=== PATIENT | female | born 1975 | race Caucasian/White ===

== ENCOUNTER 2019-08-03 11:00 | Outpatient (RCR) | payer OTHER, SELFPAY ==
--- NOTE | 2019-08-03 11:38 | PTOPEVAL ---
Thank you for referring Sharda Nicholson to [facility]. Please review, sign, date and return this plan of care SONYA. I agree with and certify that the following plan of care is medically necessary. Referring Physician Date Admitting Provider: Attending Provider: PHYSICIAN NOT ON STAFF Referring Provider: *PT Outpatient Evaluation Start: 08/03/19 10:59 Freq: Status: Active Protocol: Document 08/03/19 10:59 LUIGI (Rec: 08/03/19 11:31 LUIGI [email or web address]) Therapy Assessment Status Assessment Status Assessment Status Evaluation Evaluation Information Problem Diagnosis left knee pain Onset 07/06/19 Subjective Information Pt. reports that she stepped Query Text:As Reported By Patient/ out of her truck on 07/06/19 and Family felt pain in the left knee. She describes pain on the inside of the left knee. Pt. reports that her pain is currently increased with squatting or attempting to straighten the leg after being bent. She notes mild pain with stair navigation. Prior Level of Function Activity Level (Last 3 Months) Occupation hazardous materials tanker driver Hand Dominance Right Activity of Daily Living Ability Independent Indoor/Home Mobility Independent Community Mobility Independent Stairs Ability Independent Functional Cognition (Planning, Shopping Independent , Taking Medications) Cooking Yes Cleaning Yes Laundry Yes Shopping Yes Driving Yes Pain Assessment Pain Scale Pain Scale Used Numeric (1 - 10) Self Report Pain Assessment Left Knee(s) Reported Pain Level 2 Pain Score Pain Score 2: Self Report Lower Extremity Range of Motion General Lower Extremity Range of Motion Gross Lower Extremity Range of Motion bilateral knee AROM 0-125 Comments degrees Lower Extremity Muscle Strength Testing General Lower Extremity Strength Gross Lower Extremity Strength bilateral hip flexion 5/5, right hip abduction 4/5, left hip abduction 3+/5, bilateral hip extension 5/5, bilateral knee extension 5/5, bilateral knee flexion 5/5, bilateral ankle dorsiflexion 5/5 Muscle Length Testing Muscle Length Testing Left Hamstring Length 20
--- NOTE | 2019-08-19 09:56 | PTOPEVAL ---
Thank you for referring Sharda Nicholson to [facility]. Please review, sign, date and return this plan of care SONYA. I agree with and certify that the following plan of care is medically necessary. Referring Physician Date Admitting Provider: Attending Provider: PHYSICIAN NOT ON STAFF Referring Provider: *PT Outpatient Evaluation Start: 08/03/19 10:59 Freq: Status: Active Protocol: Document 08/19/19 09:00 Aneudy (Rec: 08/19/19 09:55 [facility] [email or web address]) Therapy Assessment Status Assessment Status Assessment Status Re-evaluation Evaluation Information Problem Diagnosis L knee pain Subjective Information patient reports she feels Query Text:As Reported By Patient/ Alright this date. she Family reports she is improved and has had less pain the past few weeks. she reports she is still worried about stairs and stepping in and out of her truck at work. she reports she has increased pain with deep flexion of the L knee. patient reports she does not return to the MD until 08/27/19. Pain Assessment Timing of Pain Assessment Timing of Pain Assessment Assessment Pain Scale Pain Scale Used Numeric (1 - 10) Self Report Pain Assessment Left Knee(s) Reported Pain Level 2 Greatest Pain Intensity 3 Pain Score Pain Score 2: Self Report Lower Extremity Range of Motion General Lower Extremity Range of Motion Gross Lower Extremity Range of Motion 0-125 degrees AROM L knee Comments mobility. slight pain increased at end rom L knee flexion. Lower Extremity Muscle Strength Testing General Lower Extremity Strength Gross Lower Extremity Strength 5/5 bilateral hip flex, 4/5 bilateral hip abd, 5/5 bilateral hip ext 5/5 bilateral knee flex/ext Gait Assessment Gait Assessment Additional Ambulation Comments patient ambulates with normal gait mechanics on level hard flat surfaces. patient uses bilateral hand rails to climb tall step immitating step into work truck/van. PT Clinical Summary Clinical Summary Protocol: PTEVCODE PT Clinical Summary mrs. nicholson is a pleasant 44 yo woman who has been attending skilled PT fo
== END 2019-09-02 17:00 | disposition home or self-care (01) ==
LOC: CHSPT 11:00
DX: M25.562 Pain in left knee (principal)
CPT/HCPCS: 97014; 97110; 97161; 97530; G0283

== ENCOUNTER 2019-10-13 10:49 | Outpatient (CLI) | payer BC, SELFPAY | END 2019-10-13 10:50 | disposition home or self-care (01) | LOC: CHSLAB 10:55 | PROVIDERS: PCP Internal Medicine; Visit Provider Specialist | DX: D22.5 Melanocytic nevi of trunk (principal) | CPT/HCPCS: 88305; 88342 ==

== ENCOUNTER 2019-11-30 09:04 | Outpatient (CLI) | payer BC, SELFPAY ==
--- NOTE | ~2019-11-30 | MMUS_ITS ---
EXAMINATION: MM screen LT diag RT w moris, US breast RT limited HISTORY: Follow-up right breast masses TECHNIQUE: Additional 3-D tomosynthesis images of the right breast were performed and synthetic 2-D i mages were generated. Screening left mammogram. CAD analysis was submitted and interpreted. High reso lution right breast ultrasound was performed. COMPARISON: Comparison to multiple prior studies sequentially, with oldest reviewed study dated 11/2015. BREAST PARENCHYMAL COMPOSITION: Breast composed of scattered areas of fibroglandular density FINDINGS: MAMMOGRAPHIC FINDINGS: Breast composed of scattered areas of fibroglandular density. The breasts are stable. No new masses, calcifications or architectural distortion. There are subtle nodular densities lateral aspect of the right breast which are obscured by dense fibroglandular tissue. ULTRASOUND: Right breast ultrasound: There are multiple simple and complicated cysts of the right breast. At 9:00 near the nipple is an ov al circumscribed hypoechoic 3 mm mass with posterior acoustic enhancement. No internal vascularity. A t 11:00, 2 cm from the nipple, there is an oval circumscribed hypoechoic mass measuring 3 mm, likely benign. At 12:00, 2 cm from the nipple, there is an oval circumscribed hypoechoic mass measuring 4 mm with characteristics, consistent with benign mass. IMPRESSION: 1. Probable benign right breast masses. No evidence for malignancy in the left breast. 2. Recommend 6 month follow-up right breast ultrasound BI-RADS category 3, probably benign findings. Reviewed, dictated and finalized at location A. IMPRESSION: 1. Probable benign right breast masses. No evidence for malignancy in the left breast. 2. Recommend 6 month follow-up right breast ultrasound BI-RADS category 3, probably benign findings.
== END 2019-11-30 09:05 | disposition home or self-care (01) ==
PROVIDERS: PCP Internal Medicine; Visit Provider Student in an Organized Health Care Education/Training Program
DX: R92.8 Other abnormal and inconclusive findings on diagnostic imaging of breast (principal); Z12.31 Encounter for screening mammogram for malignant neoplasm of breast
CPT/HCPCS: 76642; 77063; 77065; 77067

== ENCOUNTER 2020-06-27 07:54 | Outpatient (CLI) | payer BC, SELFPAY ==
--- NOTE | ~2020-06-27 | US_ITS ---
US breast RT limited 06/27/2020 08:16 Indication: Follow-up right breast masses Procedure: High-resolution Limited ultrasound of the right breast Comparison: Comparison to multiple prior studies sequentially, with oldest reviewed study dated 09/11. Findings: At 12:00, 2 cm from the nipple, there is an oval hypoechoic mass measuring 4 mm maximum dim ension without significant posterior features or internal vascularity. There is parallel orientation and circumscribed margins. At 12:00 near the nipple there is a 3 mm cyst without significant change. At 11:00, 2 cm from the nipple there is a hypoechoic mass measuring 3 mm which has a slightly differe nt appearance than on prior examination, although there is no significant posterior features or inter nal vascularity. At 9:00, 3 cm from the nipple, there is a small cluster of microcysts measuring 5 mm . At 9:00 near the nipple there is a 4 mm cyst. At 7:00, 1 cm from the nipple, there is a 3 mm cyst. There is a cystic tubular structure in the right breast in the subareolar location, likely focally pr ominent duct or cyst. Impression: 1: Probable benign right breast masses. BI-RADS CATEGORY 3-PROBABLY BENIGN FINDING RECOMMENDATION: Six-month follow-up diagnostic bilateral mammogram and right breast ultrasound Reviewed, dictated and finalized at location A. FIC SAFETY ADMINISTRATOR Impression: 1: Probable benign right breast masses. BI-RADS CATEGORY 3-PROBABLY BENIGN FINDING RECOMMENDATION: Six-month follow-up diagnostic bilateral mammogram and right br east ultrasound
== END 2020-06-27 07:55 | disposition home or self-care (01) ==
LOC: CHSIMG 07:55
PROVIDERS: PCP Internal Medicine; Visit Provider Obstetrics & Gynecology
DX: N63.10 Unspecified lump in the right breast, unspecified quadrant (principal)
CPT/HCPCS: 76642

== ENCOUNTER 2020-12-12 15:06 | Outpatient (CLI) | payer BC, SELFPAY ==
[2020-12-12 18:58] LABS: SARS-CoV-2 RNA PCR Negative (Negative)
== END 2020-12-12 15:07 | disposition home or self-care (01) ==
LOC: CHSLAB 15:08
PROVIDERS: PCP Internal Medicine; Visit Provider Internal Medicine
DX: Z20.822 Contact with and (suspected) exposure to COVID-19 (principal)
CPT/HCPCS: C9803; U0003; U0005

== ENCOUNTER 2021-02-10 09:06 | Outpatient (CLI) | payer BC, SELFPAY ==
--- NOTE | ~2021-02-10 | MMUS_ITS ---
EXAMINATION: MM diagnostic [facility] BI w moris, US breast RT limited HISTORY: Follow-up right breast masses TECHNIQUE: Additional 3-D tomosynthesis images of the breasts were performed and synthetic 2-D images were generated. CAD analysis was submitted and interpreted. High resolution Limited right breast ult rasound was performed. COMPARISON: Comparison to multiple prior studies sequentially, with oldest reviewed study dated 11/2015. BREAST PARENCHYMAL COMPOSITION: Breast composed of scattered areas of fibroglandular density. FINDINGS: MAMMOGRAPHIC FINDINGS: There are no suspicious masses, calcifications or architectural distortion in either breast to sugges t malignancy. ULTRASOUND: Limited right breast ultrasound: There are multiple simple and complicated cysts scattered throughout the right breast. No suspicious masses to suggest malignancy. There is a cluster of cysts at 9:00, 3 cm from the nipple. IMPRESSION: 1. No evidence for malignancy in either breast. Benign findings. 2. Routine yearly screening mammogram and regular clinical breast examination are recommended. BI-RADS Category 2: Benign finding(s). Reviewed, dictated and finalized at location A. IMPRESSION: 1. No evidence for malignancy in either breast. Benign findings. 2. Routine yearly screening mammogram and regular clinical breast examination a re recommended. BI-RADS Category 2: Benign finding(s).
== END 2021-02-10 09:07 | disposition home or self-care (01) ==
LOC: CHSIMG 09:08
PROVIDERS: PCP Internal Medicine; Visit Provider Obstetrics & Gynecology
DX: R92.8 Other abnormal and inconclusive findings on diagnostic imaging of breast (principal)
CPT/HCPCS: 76642; 77062; 77066; G0279

== ENCOUNTER 2022-02-12 07:52 | Outpatient (CLI) | payer BC, SELFPAY ==
--- NOTE | ~2022-02-12 | MM_ITS ---
EXAMINATION: MM screening kristina BI w moris HISTORY: Screening TECHNIQUE: Craniocaudal and mediolateral oblique 3-D tomosynthesis images were obtained and synthetic 2-D images were generated. CAD analysis was submitted and interpreted. COMPARISON: Comparison to multiple prior studies sequentially, with oldest reviewed study dated 05/20. BREAST PARENCHYMAL COMPOSITION: There are scattered areas of fibroglandular density. FINDINGS: There is no evidence of suspicious mass, calcification, or architectural distortion to sugg est malignancy in either breast. There has been no suspicious interval change. IMPRESSION: 1. No mammographic evidence of malignancy. 2. Recommend routine screening mammography in one year. BI-RADS Category 1: Negative Reviewed, dictated and finalized at location A.
== END 2022-02-12 07:53 | disposition home or self-care (01) ==
LOC: CHSIMG 07:54
PROVIDERS: PCP Internal Medicine; Visit Provider Obstetrics & Gynecology
DX: Z12.31 Encounter for screening mammogram for malignant neoplasm of breast (principal)
CPT/HCPCS: 77063; 77067

== ENCOUNTER 2022-02-14 07:48 | Outpatient (CLI) | payer BC, SELFPAY ==
[2022-02-14 08:02] LABS: Appearance Urine Clear (Clear); Basophils Absolute Auto 0.06 K/mm3 (0.00-0.10); Basophils Percent Auto 1.2 % (0.0-1.0); Bilirubin Urine Negative (Negative); Blood Urine Negative (Negative); Eosinophils Absolute Auto 0.43 K/mm3 (0.02-0.50); Eosinophils Percent Auto 8.3 % (1.0-6.0); Glucose Urine UA Negative (Negative); Hematocrit 42.9 % (35.0-49.0); Hemoglobin 14.4 g/dL (12.0-15.0); Immature Granulocyte Absolute 0.01 K/mm3 (0.00-0.00); Immature Granulocyte Percent A 0.2 % (0.0-0.0); Ketones Urine Negative (Negative); Leukocyte Esterase Ur Negative (Negative); Lymphocytes Absolute Auto 1.76 K/mm3 (1.10-4.50); Lymphocytes Percent Auto 34.1 % (18.0-42.0); Mean Corpuscular HGB Conc 33.6 g/dL (32.0-36.0); Mean Corpuscular Hemoglobin 30.4 pg (27.0-31.0); Mean Corpuscular Volume 90.7 fL (78.0-102.0); Mean Platelet Volume 9.2 fl (9.2-11.8); Monocytes Absolute Auto 0.45 K/mm3 (0.10-0.90); Monocytes Percent Auto 8.7 % (2.0-11.0); Neutrophils Absolute Auto 2.5 K/mm3 (1.7-7.2); Neutrophils Percent Auto 47.5 % (50.0-70.0); Nitrate Urine Negative (Negative); Platelet Count Result 222 K/mm3 (150-420); Protein Urine Negative (Negative); Red Blood Count 4.73 M/mm3 (4.20-5.40); Red Cell Distribution Width 12.5 % (11.6-14.4); Urobilinogen Urine 0.2 mg/dL (0.2-1.0); White Blood Count 5.2 K/mm3 (4.8-10.8); pH Urine 6.5 (5.0-8.0)
[2022-02-14 08:04] LABS: Add Urine Microscopic? NO; Color Urine Light Yellow (Yellow)
[2022-02-14 08:42] LABS: Alanine Aminotransferase 21 U/L (14-59); Albumin Level 3.6 g/dL (3.4-5.0); Alkaline Phosphatase 63 U/L (46-116); Anion Gap 8 mmol/L (8-16); Aspartate Amino Transferase 24 U/L (15-37); Blood Urea Nitrogen 25 mg/dL (7-18); Calcium 8.7 mg/dL (8.5-10.1); Carbon Dioxide 30 mmol/L (21-32); Chloride 108 mmol/L (98-108); Cholesterol 164 mg/dL (0-200); Estimated Glomerular Filt Rate > 60; Glucose 90 mg/dL (70-99); HDL Direct 71 mg/dL (40-60); LDL Cholesterol Calculated 85 mg/dL (<130); Osmolality Calculated 306 mOsm/kg (285-295); Potassium 4.6 mmol/L (3.5-5.1); Sodium 146 mmol/L (136-145); Triglycerides 41 mg/dL (0-150)
== END 2022-02-14 07:49 | disposition home or self-care (01) ==
LOC: CHSLAB 07:51
PROVIDERS: PCP Internal Medicine; Visit Provider Internal Medicine
DX: Z00.00 Encounter for general adult medical examination without abnormal findings (principal)
CPT/HCPCS: 36415; 80053; 80061; 81003; 84443; 85025

== ENCOUNTER 2022-08-27 08:02 | Outpatient (RCR) | payer OTHER, SELFPAY ==
--- NOTE | 2022-08-27 09:06 | PTOPEVAL1 ---
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 She reports she continued to work for about an hour and then went to see the company doctor and they found a torn meniscus. She has been off work since the injury. She had surgery on 08/22/22 to clean up cartilage and meniscus . She has been walking since surgery with no AD. She reports no return to work date but RTMD is scheduled for 09/03/22. She has difficulty with walking, standing and navigating stairs. 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 Reported Pain Level Pain Score 8: Self Report Assessment PT Clinical Summary Patient is a 47 year old female who presents to PT with R knee pain following R knee arthroscopy on 08/22/22. She demonstrates decreased R knee ROM, decreased R knee strength and impaired gait impairing her ability to ambulate, navigate stairs and stand for prolonged periods. 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 Patient will be progressed per MD recommendations. Plan of Care Interventions Electrical Stimulation,Gait Training,Hot Pack/Cold Pack,Manual Therapy,Neuro Re-education,Patient/ Caregiver Educati,Therapeutic Activities, Therapeutic Exercise PT Services Indicated Yes Treatment Frequency and 2x/weekly for 12 visits Duration These treatments will address the objective and functional deficits as defined above. The patient will be advanced safely and appropriately in order for the patient to progress towards his/her prior level of function. Additional exercises will be introduced and as well as a comprehensive home exercise program upon discharge, if needed, ?to ensure carryover of functional gains achieved in the clinic. This treatment plan has been reviewed and agreement upon by the patient.
--- NOTE | 2022-09-26 09:57 | PTOPEVAL1 ---
Assessment and note entered by Arash Andrews Evaluation Information Assessment Status Progress Diagnosis right knee pain Onset 08/22/22 Subjective Information Pt. reports that she still has intense pain with going down stairs. She reports that she does not feel that she will be able to tolerate the amount of stairs she has to complete in a workday. She reports that overall she has improved despite her pain. Reported Pain Level Pain Score 5: Self Report Pain Score 1: Self Report Assessment PT Clinical Summary Pt. has demonstrated excellent progress in regards to mobility and strength. She continues to have difficulty with stair navigation and has discussed modification techniques with the pt. to allow for improved comfort with work activities. Plan of Care Interventions Gait Training,Neuro Re-education,Therapeutic Activities,Therapeutic Exercise PT Services Indicated Yes Treatment Frequency and Continue with 2 remaining sessions on pt. POC Duration focused on functional mobility and strength. These treatments will address the objective and functional deficits as defined above. The patient will be advanced safely and appropriately in order for the patient to progress towards his/her prior level of function. Additional exercises will be introduced and as well as a comprehensive home exercise program upon discharge, if needed, ?to ensure carryover of functional gains achieved in the clinic. This treatment plan has been reviewed and agreement upon by the patient.
--- NOTE | 2022-10-19 09:04 | PTOPREEVAL ---
Assessment and note entered by Jessie Watson DPT Evaluation Information Assessment Status Re-evaluation Diagnosis right knee pain Onset 08/22/22 Subjective Information Patient reports that she returns to the MD on 10/23. She reports she thinks that she will be released to go back to work. She reports that stairs have improved but she continues to have discomfort. Reported Pain Level Pain Score 0: Self Report Assessment PT Clinical Summary Patient has attended 5 sessions of PT for work conditioning. Patient has been able to complete all activities with minimal discomfort. She demonstrates equat knee ROM B but continues to lack R knee flexion strenght. She continues to report difficulty with stairs but has been able to improve her ability to squat, lift, carry and step up in a vehicle. She returns to MD on 10/23 and will continue as recommended. Plan of Care Interventions Electrical Stimulation,Gait Training,Hot Pack/Cold Pack,Manual Therapy,Neuro Re-education,Patient/ Caregiver Educati,Therapeutic Activities, Therapeutic Exercise PT Services Indicated Yes Treatment Frequency and hold and continue per MD recommendations Duration These treatments will address the objective and functional deficits as defined above. The patient will be advanced safely and appropriately in order for the patient to progress towards his/her prior level of function. Additional exercises will be introduced and as well as a comprehensive home exercise program upon discharge, if needed, ?to ensure carryover of functional gains achieved in the clinic. This treatment plan has been reviewed and agreement upon by the patient.
== END 2022-10-19 20:00 | disposition home or self-care (01) ==
LOC: CHSPT 08:02
DX: Z48.89 Encounter for other specified surgical aftercare (principal)
CPT/HCPCS: 97014; 97016; 97110; 97161; 97530; 97545; G0283

== ENCOUNTER 2023-02-15 12:54 | Outpatient (CLI) | payer BC, SELFPAY ==
--- NOTE | ~2023-02-15 | MM_ITS ---
EXAMINATION: MM screening [facility] BI w moris HISTORY: Screening TECHNIQUE: Craniocaudal and mediolateral oblique 3-D tomosynthesis images were obtained and synthetic 2-D images were generated. CAD analysis was submitted and interpreted. COMPARISON: Comparison to multiple prior studies sequentially, with oldest reviewed study dated 05/2018. BREAST PARENCHYMAL COMPOSITION: Breast composed of scattered areas of fibroglandular density FINDINGS: There is no evidence of suspicious mass, calcification, or architectural distortion to sugg est malignancy in either breast. There has been no suspicious interval change. IMPRESSION: 1. No mammographic evidence of malignancy. 2. Recommend routine screening mammography in one year. BI-RADS Category 1: Negative Reviewed, dictated and finalized at location A.
== END 2023-02-15 12:55 | disposition home or self-care (01) ==
LOC: CHSIMG 12:55
PROVIDERS: PCP Internal Medicine; Visit Provider Obstetrics & Gynecology
DX: Z12.31 Encounter for screening mammogram for malignant neoplasm of breast (principal)
CPT/HCPCS: 77063; 77067

== ENCOUNTER 2023-04-30 11:31 | Outpatient (CLI) | payer OTHER, BC, SELFPAY ==
--- NOTE | ~2023-04-30 | XR_ITS ---
AP and lateral views of the right hip Clinical history: Pain Findings: No acute fracture or dislocation is seen. Osseous alignment is anatomic. There is prominent spurring at the superolateral right acetabular margin.. Soft tissues are unremarkable. Impression: Mild degenerative change of the right hip joint. Possible element of acetabular dysplasia. Reviewed, dictated and finalized at [facility]. ETICS TEACHER Impression: Mild degenerative change of the right hip joint. Possible element of acetabular dysplasia.
--- NOTE | ~2023-04-30 | XR_ITS ---
Lumbosacral Spine: AP and lateral views Clinical History: Pain Findings: The normal lordotic curve is maintained. The vertebral bodies and posterior elements are i ntact. There are mild degenerative disc changes. There is mild facet arthropathy at the lower lumbar spine. The sacroiliac joints are normally outlined. Impression: Mild degenerative spondylosis, as above. Reviewed, dictated and finalized at [facility]. RER SALVAGE Impression: Mild degenerative spondylosis, as above.
== END 2023-04-30 11:32 | disposition home or self-care (01) ==
LOC: CHSIMG 11:33
PROVIDERS: PCP Internal Medicine; Visit Provider Internal Medicine
DX: M25.551 Pain in right hip (principal); M43.06 Spondylolysis, lumbar region
CPT/HCPCS: 72100; 73502

== ENCOUNTER 2023-05-01 08:05 | Outpatient (CLI) | payer OTHER, BC, SELFPAY ==
[2023-05-01 08:17] LABS: Basophils Absolute Auto 0.04 K/mm3 (0.00-0.10); Basophils Percent Auto 0.6 % (0.0-1.0); Eosinophils Absolute Auto 0.59 K/mm3 (0.02-0.50); Eosinophils Percent Auto 9.2 % (1.0-6.0); Hematocrit 45.2 % (35.0-49.0); Hemoglobin 14.9 g/dL (12.0-15.0); Immature Granulocyte Absolute 0.02 K/mm3 (0.00-0.00); Immature Granulocyte Percent A 0.3 % (0.0-0.0); Lymphocytes Absolute Auto 1.68 K/mm3 (1.10-4.50); Lymphocytes Percent Auto 26.2 % (18.0-42.0); Mean Corpuscular Hemoglobin 29.6 pg (27.0-31.0); Mean Corpuscular Volume 89.9 fL (78.0-102.0); Mean Platelet Volume 8.9 fl (9.2-11.8); Monocytes Absolute Auto 0.49 K/mm3 (0.10-0.90); Monocytes Percent Auto 7.6 % (2.0-11.0); Neutrophils Absolute Auto 3.6 K/mm3 (1.7-7.2); Neutrophils Percent Auto 56.1 % (50.0-70.0); Platelet Count Result 245 K/mm3 (150-420); Red Blood Count 5.03 M/mm3 (4.20-5.40); Red Cell Distribution Width 12.9 % (11.6-14.4); White Blood Count 6.4 K/mm3 (4.8-10.8)
[2023-05-01 09:08] LABS: Alanine Aminotransferase 33 U/L (14-59); Albumin Level 3.8 g/dL (3.4-5.0); Alkaline Phosphatase 85 U/L (46-116); Anion Gap 2 mmol/L (8-16); Aspartate Amino Transferase 18 U/L (15-37); Bilirubin,Total 0.9 mg/dL (0.00-1.00); Blood Urea Nitrogen 14 mg/dL (7-18); Calcium 9.3 mg/dL (8.5-10.1); Carbon Dioxide 35 mmol/L (21-32); Chloride 106 mmol/L (98-108); Cholesterol 186 mg/dL (0-200); Estimated Glomerular Filt Rate > 60; Glucose 98 mg/dL (70-99); HDL Direct 66 mg/dL (40-60); LDL Cholesterol Calculated 104 mg/dL (<130); Osmolality Calculated 296 mOsm/kg (285-295); Potassium 4.5 mmol/L (3.5-5.1); Sodium 143 mmol/L (136-145); Thyroid Stimulating Hormone 1.96 uIU/mL (0.36-3.74); Total Protein 7.1 g/dL (6.4-8.2); Triglycerides 79 mg/dL (0-150)
[2023-05-01 09:09] LABS: CRP < 0.5 mg/dL (0.0-0.9)
== END 2023-05-01 08:06 | disposition home or self-care (01) ==
LOC: CHSLAB 08:07
PROVIDERS: PCP Internal Medicine; Visit Provider Internal Medicine
DX: Z00.00 Encounter for general adult medical examination without abnormal findings (principal); M25.551 Pain in right hip; R63.5 Abnormal weight gain
CPT/HCPCS: 36415; 80053; 80061; 84443; 85025; 86140

== ENCOUNTER 2023-05-16 08:16 | Outpatient (CLI) | payer OTHER, SELFPAY ==
--- NOTE | ~2023-05-16 | MR_ITS ---
EXAMINATION: MR hip RT wo con DATE: 05/16/2023 09:02 INDICATION: Right hip dysplasia. TECHNIQUE: Magnetic resonance imaging (MRI) of the right hip was performed without intravenous contra st. COMPARISON: Right hip radiographs 04/30/23 FINDINGS: Bones/cartilage: Bone alignment is normal. No fracture. The femoral head/neck junctions are normal in morphology. Ther e is lateral uncovering of right femoral head, consistent with developmental dysplasia. Small field-o f-view images of right hip demonstrate full-thickness cartilage loss superiorly. There is mild left h ip osteoarthritis. Labrum: There is a tear of the right acetabular labrum. Fluid: There is a small right hip joint effusion. There is moderate right and mild left trochanteric bursiti s. Soft tissues: The iliopsoas tendons are normal. There is mild tendinopathy of the hamstring origins bilaterally. Th e gluteus minimus and gluteus medius tendons are normal. IMPRESSION: 1. Severe right hip chondrosis. Right-sided developmental hip dysplasia. 2. Small right hip joint effusion. 3. Mild left hip osteoarthritis. Reviewed, dictated and finalized at location E. SITE SUPERVISOR
== END 2023-05-16 08:17 | disposition home or self-care (01) ==
LOC: CHSIMG 08:19
PROVIDERS: PCP Internal Medicine; Visit Provider Internal Medicine
DX: Q65.89 Other specified congenital deformities of hip (principal); M25.451 Effusion, right hip; M16.12 Unilateral primary osteoarthritis, left hip; M94.351 Chondrolysis, right hip
CPT/HCPCS: 73721

== ENCOUNTER 2023-07-09 14:25 | Outpatient (RCR) | payer BC, SELFPAY ==
[2023-07-09 14:30] VITALS: BMI 47.5
== END 2023-09-30 09:39 | disposition home or self-care (01) ==
LOC: ANHDMC 14:25
PROVIDERS: PCP Internal Medicine; Visit Provider Internal Medicine
DX: E66.01 Morbid (severe) obesity due to excess calories (principal); Z71.3 Dietary counseling and surveillance
CPT/HCPCS: 97802

== ENCOUNTER 2023-10-03 07:50 | Outpatient (RCR) | payer BC, SELFPAY ==
--- NOTE | 2023-10-03 08:12 | OPREHPOC ---
Outpatient Therapy Plan of Care This is a Multidisciplinary Plan of Care that may contain components documented by all disciplines (PT, OT, and ST.) PT Problem 1 PT Problem #1 Knowledge Deficit PT Goal 1 Goal 1. independent and compliant with HEP Target Visit 6 PT Problem 2 PT Problem #2 Pain PT Goal 1 Goal 1. decrease pain at worst in the R hip to 4/10 or less Target Visit 12 PT Problem 3 PT Problem #3 Impaired Range of Motion PT Goal 1 Goal 1. improve active R hip ER to 40 degrees or better 2. improve active R hip IR to 10 degrees or better Target Visit 12 PT Problem 4 PT Problem #4 Impaired Strength PT Goal 1 Goal 1. improve bilateral hip strength to 4+/5 or better overall Target Visit 12 PT Problem 5 PT Problem #5 Impaired Functional Mobil PT Goal 1 Goal 1. patient to tolerate standing and walking for 2 hours to return to prior level work duties and home care activities. 2. patient to squat and lift 40lbs from floor to waist x10 repetitions without pain and with safe mechanics 3. patient to carry 30lbs at waist level for 400ft or more without pain and with safe mechanics 4. 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
--- NOTE | 2023-10-03 08:12 | PTOPEVAL1 ---
Assessment and note entered by JT File, PT Evaluation Information Assessment Status Evaluation Diagnosis unilateral OA resulting from hip dysplasia of the R hip. Onset 04/24/23 Subjective Information patient reports back in March she was unable to stand, sit, or lay down. she had severe lower back and hip pain. she reports she had some imaging done and was found that she has hip dysplasia. she was told she needed a hip replacement. she reports she did see an ortho who did not want to do surgery. she reports she then returned to her PCP who gave her some meds and sent her to pain management. she reports she received a steroid injection from pain management. she reports she does know she has a torn labrum and a severe OA of the hip from repetition at work and her hip dysplasia. 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 she reports she has an appointment with 2 orthos this month. she reports she has not worked since March of last year. she reports she has increased pain and symptoms with standing more than 30 minutes. she reports she is unable to do simple house chores due to her pain. Reported Pain Level Pain Score 8: Self Report Assessment PT Clinical Summary mrs. chung is a 48 yo woman who presents to skilled PT services for evaluation and treatment of R hip pain. she presents with decreased ROM, decreased strength, and pain in the R hip. her symptoms are consistent with an OA of the R hip. however, a labral tear may also be present in the R hip. she is limited in standing, ambulation, and lifting activities which correlates to her daily work and home care. she is currently unable to work due to her pain. she would benefit from continued skilled PT and work conditioning to improve her objective/functional deficits and progress towards a return to her prior level functional activity performance, work performance, and quality of life. Plan of Care Interventions Electrical Stimulation,Gait Training,Hot Pack/Cold Pack,Manual Therapy,Neuro Re-education,Patient/ Caregiver Educati,Therapeutic Activities, Therapeutic Exercise PT Services Indicated Yes Treatment Frequency and 3x weekly for 12 visits Duration The
--- NOTE | 2023-10-16 16:33 | PCPTNOTE ---
I reviewed the License Pending Therapist's documentation and agree with the findings.
--- NOTE | 2023-11-06 09:15 | OPREHPOC ---
Outpatient Therapy Plan of Care This is a Multidisciplinary Plan of Care that may contain components documented by all disciplines (PT, OT, and ST.) PT Problem 1 PT Problem #1 Knowledge Deficit PT Goal 1 Goal 1. independent and compliant with HEP Target Visit 6 Progress Met PT Problem 2 PT Problem #2 Pain PT Goal 1 Goal 1. decrease pain at worst in the R hip to 4/10 or less Target Visit 12 Progress Not Met PT Problem 3 PT Problem #3 Impaired Range of Motion PT Goal 1 Goal 1. improve active R hip ER to 40 degrees or better 2. improve active R hip IR to 10 degrees or better Target Visit 12 Progress Not Met PT Problem 4 PT Problem #4 Impaired Strength PT Goal 1 Goal 1. improve bilateral hip strength to 4+/5 or better overall Target Visit 12 Progress Not Met PT Problem 5 PT Problem #5 Impaired Functional Mobil PT Goal 1 Goal 1. patient to tolerate standing and walking for 2 hours to return to prior level work duties and home care activities. 2. patient to squat and lift 40lbs from floor to waist x10 repetitions without pain and with safe mechanics 3. patient to carry 30lbs at waist level for 400ft or more without pain and with safe mechanics 4. 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
--- NOTE | 2023-11-06 09:15 | PTOPPROGNS ---
Assessment and note entered by JT File, PT Evaluation Information Assessment Status Progress Diagnosis unilateral OA resulting from hip dysplasia of the R hip. Onset 04/24/23 Subjective Information patient reports her pain in the R hip is increased today, and feels like it wants to give out at times. Assessment PT Clinical Summary mrs. chung presents to skilled PT for her 10th skilled PT visit. she has increased pain in the R hip today, but has been tolerating 2 hour therapy sessions of work conditioning since her initial evaluation. she displays slight improvement in R hip active ER rom today, and has achieved EHP goal . she continues to have unmet performance on strength, pain, and functional goals as of this date. continued skilled PT is indicated to progress towards achievement of these goals and return to her prior level functional and work performance. Plan of Care Interventions Electrical Stimulation,Gait Training,Hot Pack/Cold Pack,Manual Therapy,Neuro Re-education,Patient/ Caregiver Educati,Therapeutic Activities, Therapeutic Exercise PT Services Indicated Yes Treatment Frequency and continued skilled PT per initial evaluation Duration These treatments will address the objective and functional deficits as defined above. The patient will be advanced safely and appropriately in order for the patient to progress towards his/her prior level of function. Additional exercises will be introduced and as well as a comprehensive home exercise program upon discharge, if needed, ?to ensure carryover of functional gains achieved in the clinic. This treatment plan has been reviewed and agreement upon by the patient.
--- NOTE | 2023-11-07 09:03 | OPREHPOC ---
Outpatient Therapy Plan of Care This is a Multidisciplinary Plan of Care that may contain components documented by all disciplines (PT, OT, and ST.) PT Problem 1 PT Problem #1 Knowledge Deficit PT Goal 1 Goal 1. independent and compliant with HEP Target Visit 6 Progress Met PT Problem 2 PT Problem #2 Pain PT Goal 1 Goal 1. decrease pain at worst in the R hip to 4/10 or less Target Visit 24 Progress Not Met PT Problem 3 PT Problem #3 Impaired Range of Motion PT Goal 1 Goal 1. improve active R hip ER to 40 degrees or better 2. improve active R hip IR to 10 degrees or better Target Visit 24 Progress Not Met PT Problem 4 PT Problem #4 Impaired Strength PT Goal 1 Goal 1. improve bilateral hip strength to 4+/5 or better overall Target Visit 24 Progress Not Met PT Problem 5 PT Problem #5 Impaired Functional Mobil PT Goal 1 Goal 1. patient to tolerate standing and walking for 2 hours to return to prior level work duties and home care activities. not met 2. patient to squat and lift 40lbs from floor to waist x10 repetitions without pain and with safe mechanics. met for lifting, not for pain 3. patient to carry 30lbs at waist level for 400ft or more without pain and with safe mechanics. met for distance, not for pain 4. 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 met for flights ambulated, but not for pain Target Visit 24 Progress Not Met
--- NOTE | 2023-11-07 09:03 | PTOPEVAL1 ---
Assessment and note entered by JT File, PT Evaluation Information Assessment Status Re-evaluation Diagnosis unilateral OA resulting from hip dysplasia of the R hip. Onset 04/24/23 Subjective Information patient reports she is more sore today. she reports she is awaiting approval for a follow up with her surgeon. she reports she is still weak and has pain in the R hip. she reports going up and down stairs is still very difficult. she also reports she also continues to have difficulty laying on her stomach to sleep, and get the R LE in and out of the car. Reported Pain Level Pain Score 7: Self Report Pain Score 3: Self Report Assessment PT Clinical Summary mrs. chung presents to skilled PT today for her 12th skilled therapy visit. she presents today with increased soreness/pain in the R hip at rest and with activity. she does score slightly worse on the LEFS today, but this is most likely due to her increased symptoms today. she continues to have pain in the R hip of significant level, decreased rom of the R hip, and weakness of the R> L hip. today, she does perform all activities of functional goals of lifting/carrying/stairs, but does so with increased pain in the R hip thus progress is made, but no achievement yet. she has no plan for follow up with the ortho regarding approval for surgery of the R hip yet. given her lack of plan for surgery on the hip, and continued deficits preventing her return to prior level activities including work, continued skilled PT is indicated to continue to work towards achievement of all goals. Plan of Care Interventions Electrical Stimulation,Gait Training,Hot Pack/Cold Pack,Manual Therapy,Neuro Re-education,Patient/ Caregiver Educati,Therapeutic Activities, Therapeutic Exercise PT Services Indicated Yes Treatment Frequency and continue skilled PT 3x weekly for 12 more visits Duration of work conditioning These treatments will address the objective and functional deficits as defined above. The patient will be advanced safely and appropriately in order for the patient to progress towards his/her prior level of function. Additional exercises will be introduced and as well as a comprehensive home exercise program upon discharge, if needed, ?to ensure carryover of functional gains achieved in the clinic. This treatment plan has been reviewed and agreement upon by the patient.
--- NOTE | 2023-11-14 07:40 | PCPTNOTE ---
I reviewed the License Pending Therapist's documentation and agree with the findings 11/12/23.
--- NOTE | 2023-12-03 07:15 | PCPTNOTE ---
Patient called & cancelled scheduled appointment this date due to [illness ]
--- NOTE | 2023-12-04 07:11 | PCPTNOTE ---
Cancelled session due to illness.
--- NOTE | 2023-12-05 07:09 | PCPTNOTE ---
Patient called & cancelled scheduled appointment this date due to [illness ]
--- NOTE | 2023-12-17 08:41 | PTOPPROG ---
Assessment and note entered by Jessie Brooks DPT Evaluation Information Assessment Status Progress Diagnosis unilateral OA resulting from hip dysplasia of the R hip. Onset 04/24/23 Subjective Information Patient reports that she continues to have pain when trying to sleep and ends up in the recliner by the end of the night. She reports difficulty with stairs and getting into and out of the car. She reports she has had little improvement since starting PT. She reports she is unsure of her return to the MD and is waiting on that appointment to get scheduled. Assessment PT Clinical Summary Mrs. Nicholson has attended 18 visits of skilled PT . She returns today after 3 week break due to illness and her daughter being in town. She continues to demonstrate decreased R hip ROM and strength as well as pain with stair navigation, sleeping and getting into and out of the car. She reports limited improvement since start of PT. She is waiting for follow up to be scheduled with MD. She will be continued per current POC at this time. Plan of Care Interventions Electrical Stimulation,Gait Training,Hot Pack/Cold Pack,Manual Therapy,Neuro Re-education,Patient/ Caregiver Educati,Therapeutic Activities, Therapeutic Exercise PT Services Indicated Yes Treatment Frequency and continue with current POC Duration These treatments will address the objective and functional deficits as defined above. The patient will be advanced safely and appropriately in order for the patient to progress towards his/her prior level of function. Additional exercises will be introduced and as well as a comprehensive home exercise program upon discharge, if needed, ?to ensure carryover of functional gains achieved in the clinic. This treatment plan has been reviewed and agreement upon by the patient.
== END 2023-12-25 20:00 | disposition still patient (30) ==
LOC: CHSPT 07:50
PROVIDERS: Visit Provider Nurse Practitioner Adult Health
DX: M16.31 Unilateral osteoarthritis resulting from hip dysplasia, right hip (principal)
CPT/HCPCS: 97014; 97110; 97161; 97545; G0283

== ENCOUNTER 2023-12-06 12:04 | Outpatient (CLI) | payer BC, SELFPAY ==
--- NOTE | ~2023-12-06 | XR_ITS ---
XR abdomen/kub 1V Ordering provider: Rpua Ruiz, CUSTOMS EXAMINER History: . ABDOMINAL PAIN/CRAMPING, CYSTITIS,GENERAL WEAKNESS . Comparison: None. FINDINGS: BOWEL: Nonobstructive bowel gas pattern. ORGANOMEGALY: None. SIGNIFICANT PATHOLOGIC CALCIFICATIONS: None. OTHER: Multilevel degenerative disc disease. Right hip severe osteoarthritic changes. No free air is seen under the diaphragm. IMPRESSION: NO ACUTE ABDOMINAL FINDINGS. Reviewed, dictated and finalized at location A.
[2023-12-06 12:37] LABS: Basophils Absolute Auto 0.04 K/mm3 (0.00-0.10); Basophils Percent Auto 0.4 % (0.0-1.0); Eosinophils Absolute Auto 0.32 K/mm3 (0.02-0.50); Eosinophils Percent Auto 3.2 % (1.0-6.0); Hematocrit 39.6 % (35.0-49.0); Hemoglobin 13.6 g/dL (12.0-15.0); Immature Granulocyte Absolute 0.06 K/mm3 (0.00-0.00); Immature Granulocyte Percent A 0.6 % (0.0-0.0); Lymphocytes Absolute Auto 1.89 K/mm3 (1.10-4.50); Lymphocytes Percent Auto 18.8 % (18.0-42.0); Mean Corpuscular HGB Conc 34.3 g/dL (32-36); Mean Corpuscular Hemoglobin 29.8 pg (27.0-31.0); Mean Corpuscular Volume 86.8 fL (78.0-102.0); Mean Platelet Volume 9.2 fl (9.2-11.8); Monocytes Absolute Auto 1.11 K/mm3 (0.10-0.90); Neutrophils Absolute Auto 6.65 K/mm3 (1.70-7.20); Platelet Count Result 266 K/mm3 (150-420); Red Blood Count 4.56 M/mm3 (4.20-5.40); Red Cell Distribution Width 13.2 % (11.6-14.4); White Blood Count 10.1 K/mm3 (4.8-10.8)
[2023-12-06 13:30] LABS: Anion Gap 10 mmol/L (4-12); Blood Urea Nitrogen 12 mg/dL (7-18); Calcium 8.9 mg/dL (8.5-10.1); Carbon Dioxide 28 mmol/L (21-32); Chloride 106 mmol/L (98-108); Estimated Glomerular Filt Rate > 60; Glucose 84 mg/dL (70-99); Osmolality Calculated 296 mOsm/kg (285-295); Potassium 3.9 mmol/L (3.5-5.1); Sodium 144 mmol/L (136-145)
== END 2023-12-06 12:05 | disposition home or self-care (01) ==
LOC: CHSLAB 12:06
PROVIDERS: PCP Internal Medicine; Visit Provider Nurse Practitioner Family
DX: R10.9 Unspecified abdominal pain (principal); N30.90 Cystitis, unspecified without hematuria
CPT/HCPCS: 36415; 74018; 80048; 85025

== ENCOUNTER 2024-01-02 08:02 | Outpatient (RCR) | payer BC, SELFPAY ==
--- NOTE | 2024-01-30 09:06 | OPREHPOC ---
Outpatient Therapy Plan of Care This is a Multidisciplinary Plan of Care that may contain components documented by all disciplines (PT, OT, and ST.) PT Problem 1 PT Problem #1 Knowledge Deficit PT Goal 1 Goal / Goal Update 1. independent and compliant with HEP Target Visit 6 Progress Met PT Problem 2 PT Problem #2 Pain PT Goal 1 Goal / Goal Update 1. decrease pain at worst in the R hip to 4/10 or less Target Visit 24 Progress Not Met PT Problem 3 PT Problem #3 Impaired Strength PT Goal 1 Goal / Goal Update 1. improve active R hip ER to 40 degrees or better (met) 2. improve active R hip IR to 10 degrees or better Target Visit 36 Progress Not Met PT Problem 4 PT Problem #4 Impaired Strength PT Goal 1 Goal / Goal Update 1. improve bilateral hip strength to 4+/5 or better overall (achieved L hip flex strength goal only at this time) Target Visit 36 Progress Not Met PT Problem 5 PT Problem #5 Impaired Functional Mobil PT Goal 1 Goal / Goal Update 1. patient to tolerate standing and walking for 2 hours to return to prior level work duties and home care activities. not met 2. patient to squat and lift 40lbs from floor to waist x10 repetitions without pain and with safe mechanics. met for lifting, not for pain 3. patient to carry 30lbs at waist level for 400ft or more without pain and with safe mechanics. met for distance, not for pain 4. 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 met for flights ambulated, but not for pain Target Visit 36 Progress Not Met
--- NOTE | 2024-01-30 09:07 | PTOPREEVAL ---
Assessment and note entered by JT File, PT Evaluation Information Assessment Status Re-evaluation Diagnosis unilateral OA resulting from hip dysplasia of the R hip. Onset 04/24/23 Subjective Information patient reports she is still waiting to hear if she is going to get approved for surgery or not. she reports she was told by her MD and her surgeon to continue PT. she reports she continues to have pain with prolonged standing/walking. she also has pain with steps. she reports she is not sleeping due to pain in the R hip. 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 Reported Pain Level Pain Score 5: Self Report Assessment PT Clinical Summary mrs. chung presents to skilled PT services today for her 24th skilled PT visit. she displays continued deficits in R hip active rom and strength. she also is limited in lifting/carrying ability, stair ambulation performance/mechanics, and walking endurance/mechanics. she has been completing work conditioning therapy to work on her ability to return to prior level work duties and functional performance. in addition to her work deficits, she is also limited in her daily home and community activities. she is not sleeping due to the pain in the R hip. she is awaiting approval for R hip replacement. she would benefit from continued skilled PT to prevent patient from getting worse, to prevent loss of endurance/ strength/mobility, and to prepare for return to work/functional activity performance/duties. her progress towards goals is slow. she will ultimately need a hip replacement, but at this time is not approved for the procedure. she reports being told by her MD and transformation architect to continue PT while awaiting approval. Plan of Care Interventions Therapeutic Exercise,Patient/Caregiver Educati, Manual Therapy,Neuro Re-education,Therapeutic Activities,Hot Pack/Cold Pack,Electrical Stimulation,Gait Training PT Services Indicated Yes Treatment Frequency and continue skilled PT for work conditioning (WC) 3x Duration weekly for 12 more visits These treatments will address the objective and functional deficits as defined above. The patient will be advanced safely and appropriately in order for the patient to progress towards his/her prior level of function. Additional exercises will be introduced and as well as a comprehensive home exercise program upon discharge, if needed, ?to ensure carryover of functional gains achieved in the clinic. This treatment plan has been reviewed and agreement upon by the patient.
== END 2024-04-01 23:59 | disposition home or self-care (01) ==
LOC: CHSPT 08:02
PROVIDERS: Visit Provider Nurse Practitioner Adult Health
DX: M16.31 Unilateral osteoarthritis resulting from hip dysplasia, right hip (principal)
CPT/HCPCS: 97545

== ENCOUNTER 2024-01-15 13:11 | Outpatient (CLI) | payer BC, SELFPAY ==
[2024-01-15 14:18] LABS: Alanine Aminotransferase 26 U/L (14-59); Albumin Level 3.7 g/dL (3.4-5.0); Alkaline Phosphatase 90 U/L (46-116); Anion Gap 8 mmol/L (4-12); Aspartate Amino Transferase 20 U/L (15-37); Bilirubin,Total 0.9 mg/dL (0.00-1.00); Blood Urea Nitrogen 16 mg/dL (7-18); Calcium 8.8 mg/dL (8.5-10.1); Carbon Dioxide 29 mmol/L (21-32); Chloride 104 mmol/L (98-108); Estimated Glomerular Filt Rate > 60; Glucose 94 mg/dL (70-99); Osmolality Calculated 293 mOsm/kg (285-295); Potassium 4.2 mmol/L (3.5-5.1); Sodium 141 mmol/L (136-145); Total Protein 7.4 g/dL (6.4-8.2)
[2024-01-15 14:20] LABS: Thyroid Stimulating Hormone Reflex 1.19 u/IU/mL (0.36-3.74)
[2024-01-17 11:09] LABS: FSH 92.2 mIU/mL; Progesterone <0.5 ng/mL; Vitamin D 25 Hydroxy 35 ng/mL (30-100)
[2024-01-25 16:07] LABS: Estrogen 70 pg/mL
== END 2024-01-15 13:12 | disposition home or self-care (01) ==
LOC: CHSLAB 13:14
PROVIDERS: PCP Internal Medicine; Visit Provider Obstetrics & Gynecology
DX: N95.1 Menopausal and female climacteric states (principal)
CPT/HCPCS: 36415; 80053; 82306; 82672; 83001; 84144; 84443

== ENCOUNTER 2024-02-13 10:21 | Outpatient (CLI) | payer BC, SELFPAY ==
[2024-02-14 11:17] LABS: Sex Hormone Binding Globulin 54 nmol/L (17-124)
== END 2024-02-13 10:22 | disposition home or self-care (01) ==
LOC: CHSLAB 10:27
PROVIDERS: PCP Internal Medicine; Visit Provider Family Medicine
DX: N95.1 Menopausal and female climacteric states (principal); R53.83 Other fatigue; E34.9 Endocrine disorder, unspecified; R68.82 Decreased libido
CPT/HCPCS: 36415; 84270; 84402; 84403

== ENCOUNTER 2024-02-17 07:22 | Outpatient (CLI) | payer BC, SELFPAY ==
--- NOTE | ~2024-02-17 | MM_ITS ---
EXAMINATION: MM screening kristina BI w moris HISTORY: Screening TECHNIQUE: Craniocaudal and mediolateral oblique 3-D tomosynthesis images were obtained and synthetic 2-D images were generated. CAD analysis was submitted and interpreted. COMPARISON: Comparison to multiple prior studies sequentially, with oldest reviewed study dated 01/27. BREAST PARENCHYMAL COMPOSITION: Not dense: There are scattered areas of fibroglandular density. FINDINGS: There is no evidence of suspicious mass, calcification, or architectural distortion to sugg est malignancy in either breast. There has been no suspicious interval change. IMPRESSION: 1. No mammographic evidence of malignancy. 2. Recommend routine screening mammography in one year. BI-RADS Category 1: Negative Reviewed, dictated and finalized at location B.
== END 2024-02-17 07:23 | disposition home or self-care (01) ==
LOC: CHSIMG 07:23
PROVIDERS: PCP Internal Medicine; Visit Provider Obstetrics & Gynecology
DX: Z12.31 Encounter for screening mammogram for malignant neoplasm of breast (principal)
CPT/HCPCS: 77063; 77067

== ENCOUNTER 2024-06-26 08:54 | Outpatient (CLI) | payer OTHER, SELFPAY ==
[2024-06-26 09:47] LABS: Hemoglobin 15.6 g/dL (12.0-15.0); Mean Corpuscular HGB Conc 32.5 g/dL (32-36); Mean Corpuscular Hemoglobin 28.8 pg (27.0-31.0); Mean Corpuscular Volume 88.6 fL (78.0-102.0); Mean Platelet Volume 9.9 fl (9.2-11.8); Platelet Count Result 250 K/mm3 (150-420); Red Blood Count 5.42 M/mm3 (4.20-5.40); Red Cell Distribution Width 13.3 % (11.6-14.4); White Blood Count 6.1 K/mm3 (4.8-10.8)
[2024-06-26 10:13] LABS: Alanine Aminotransferase 21 U/L (14-59); Albumin Level 3.9 g/dL (3.4-5.0); Alkaline Phosphatase 106 U/L (46-116); Anion Gap 11 mmol/L (4-12); Aspartate Amino Transferase 19 U/L (15-37); Bilirubin,Total 1.3 mg/dL (0.00-1.00); Blood Urea Nitrogen 16 mg/dL (7-18); Calcium 8.9 mg/dL (8.5-10.1); Carbon Dioxide 27 mmol/L (21-32); Chloride 105 mmol/L (98-108); Estimated Glomerular Filt Rate > 60; Glucose 80 mg/dL (70-99); Osmolality Calculated 296 mOsm/kg (285-295); Potassium 4.5 mmol/L (3.5-5.1); Sodium 143 mmol/L (136-145); Total Protein 7.4 g/dL (6.4-8.2)
== END 2024-06-26 08:55 | disposition home or self-care (01) ==
LOC: CHSLAB 08:56
PROVIDERS: PCP Internal Medicine; Visit Provider Orthopaedic Surgery
DX: Z01.818 Encounter for other preprocedural examination (principal)
CPT/HCPCS: 36415; 80053; 85027; 93005

== ENCOUNTER 2024-08-06 07:48 | Outpatient (RCR) | payer OTHER, SELFPAY ==
--- NOTE | 2024-08-06 09:02 | OPREHPOC ---
Outpatient Therapy Plan of Care This is a Multidisciplinary Plan of Care that may contain components documented by all disciplines (PT, OT, and ST.) PT Problem 1 PT Problem #1 Knowledge Deficit PT Goal 1 Goal / Goal Update The patient will demonstrate independence in a home exercise program. Target Visit 4 PT Problem 2 PT Problem #2 Impaired Functional Mobility PT Goal 1 Goal / Goal Update The patient will demonstrate 40% or less self perceived disability per the LEFS questionnaire. The patient will be able to ambulate 1,000 feet with the least restrictive assistive device and 2/ 10 or less right hip pain. Target Visit 12 PT Problem 3 PT Problem #3 Impaired Range of Motion PT Goal 1 Goal / Goal Update The patient will demonstrate 25 degrees right hip abduction AROM. The patient will demonstrate 90 degrees right hip flexion AROM. The patient will demonstrate 90 degrees right knee flexion AROM. Target Visit 12 PT Problem 4 PT Problem #4 Impaired Strength PT Goal 1 Goal / Goal Update The patient will demonstrate 4/5 or greater hip and knee strength to improve functional ability. Target Visit 12
--- NOTE | 2024-08-06 09:02 | PTOPEVAL1 ---
Assessment and note entered by Faustina Medina, PT Evaluation Information Assessment Status Evaluation Diagnosis R AURELIO ICD-10 Condition Codes (PT) Pain in right hip M25.551,Encounter for other orthopedic aftercare Z47.89,Aftercare following joint replacement surgery Z47.1 Onset 07/13/24 Subjective Information Sharda Nicholson reports she had her right hip replaced on 07/13/24. She reports she had a lot of pain following the surgery until this week it has started to feel better. She does continue to have groin pain. She used a walker initially after surgery and began using a quad cane for ambulation this week. She still uses the walker at night. She has 4 steps into/out of her home and she is taking them one at a time and goes down backwards. She has basement laundry but her is taking care of that. She just began driving yesterday and it is going well. She is taking sponge baths because she just got her nadja out on 08/05/24. She has an elevated commode and toileting is getting easier. She also notes getting out of chairs is easier and she is pushing up with her hands and she has her recliner on risers. 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 Reported Pain Level Pain Score 3: Self Report Assessment PT Clinical Summary Sharda Nicholson presents 3.5 weeks s/p right AURELIO performed on 07/13/24. She is reporting difficulty with prolonged sitting, standing, walking, and showering. She objectively demonstrates decreased right hip and knee AROM, decreased hip and knee strength, decreased balance, altered gait, and inability to work as a water truck driver. She will benefit from skilled PT to address these limitations. Plan of Care Interventions Electrical Stimulation,Hot Pack/Cold Pack,Manual Therapy,Neuro Re-education,Patient/Caregiver Education,Therapeutic Activities,Therapeutic Exercise PT Services Indicated Yes Treatment Frequency and 2 times a week for 12 visits Duration These treatments will address the objective and functional deficits as defined above. The patient will be advanced safely and appropriately in order for the patient to progress towards his/her prior level of function. Additional exercises will be introduced and as well as a comprehensive home exercise program upon discharge, if needed, ?to ensure carryover of functional gains achieved in the clinic. This treatment plan has been reviewed and agreement upon by the patient.
--- NOTE | 2024-09-03 11:41 | OPREHPOC ---
Outpatient Therapy Plan of Care This is a Multidisciplinary Plan of Care that may contain components documented by all disciplines (PT, OT, and ST.) PT Problem 1 PT Problem #1 Knowledge Deficit PT Goal 1 Goal / Goal Update The patient will demonstrate independence in a home exercise program. Target Visit 4 Progress Met PT Goal 2 Goal / Goal Update Continue to progress. PT Problem 2 PT Problem #2 Impaired Functional Mobility PT Goal 1 Goal / Goal Update The patient will demonstrate 40% or less self perceived disability per the LEFS questionnaire. - not met The patient will be able to ambulate 1,000 feet with the least restrictive assistive device and 2/ 10 or less right hip pain. -not met Target Visit 12 Progress Not Met PT Goal 2 Goal / Goal Update continue PT Problem 3 PT Problem #3 Impaired Range of Motion PT Goal 1 Goal / Goal Update 1.The patient will demonstrate 25 degrees right hip abduction AROM. -not met 2.The patient will demonstrate 90 degrees right hip flexion AROM. -met 3.The patient will demonstrate 90 degrees right knee flexion AROM. -met Target Visit 12 Progress Partially Met PT Goal 2 Goal / Goal Update Continue #1 PT Problem 4 PT Problem #4 Impaired Strength PT Goal 1 Goal / Goal Update The patient will demonstrate 4/5 or greater hip and knee strength to improve functional ability. Target Visit 12 Progress Not Met PT Goal 2 Goal / Goal Update continue
--- NOTE | 2024-09-03 11:42 | PTOPPROG ---
Assessment and note entered by Faustina Medina, PT Evaluation Information Assessment Status Progress Diagnosis R AURELIO ICD-10 Condition Codes (PT) Pain in right hip M25.551,Encounter for other orthopedic aftercare Z47.89,Aftercare following joint replacement surgery Z47.1 Onset 07/13/24 Subjective Information Sharda Nicholson reports that her right hip is getting better overall. She still has an ache in the groin area but it is greatly improved. She is able to walk around her house without a cane but is still using it due to having 4 dogs in the house. She still gets soreness with standing after prolonged sitting and when she first lays down. She is going downstairs backwards and one at a time and going upstairs she faces forwards and still takes them one at a time. She feels she is progressing but it is slow. Assessment PT Clinical Summary Sharda Nicholson has completed 9 skilled PT visits for right hip pain following a right AURELIO. She is reporting overall improvements in her pain and function. She does still have limitations with stairs, walking longer distances, and mild groin pain. 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 She demonstrates improved right hip AROM, improved right hip strength, and improved gait. Despite these improvements, she has not met her PT goals and continues to have limitations in ROM, strength , balance, gait, and endurance. She will continue to benefit from skilled PT to further address physical and functional limitations. Plan of Care Interventions Electrical Stimulation,Hot Pack/Cold Pack,Patient/ Caregiver Education,Therapeutic Activities, Therapeutic Exercise PT Services Indicated Yes Treatment Frequency and Continue skilled PT 2 times a week for 10 more Duration visits These treatments will address the objective and functional deficits as defined above. The patient will be advanced safely and appropriately in order for the patient to progress towards his/her prior level of function. Additional exercises will be introduced and as well as a comprehensive home exercise program upon discharge, if needed, ?to ensure carryover of functional gains achieved in the clinic. This treatment plan has been reviewed and agreement upon by the patient.
--- NOTE | 2024-09-15 11:51 | OPREHPOC ---
Outpatient Therapy Plan of Care This is a Multidisciplinary Plan of Care that may contain components documented by all disciplines (PT, OT, and ST.) PT Problem 1 PT Problem #1 Knowledge Deficit PT Goal 1 Goal / Goal Update The patient will demonstrate independence in a home exercise program. Target Visit 4 Progress Met PT Goal 2 Goal / Goal Update Continue to progress. Target Visit 20 PT Problem 2 PT Problem #2 Impaired Functional Mobility PT Goal 1 Goal / Goal Update 1. The patient will demonstrate 40% or less self perceived disability per the LEFS questionnaire. - not met 2. The patient will be able to ambulate 1,000 feet with the least restrictive assistive device and 2 /10 or less right hip pain. -met Target Visit 12 Progress Not Met PT Goal 2 Goal / Goal Update continue #1 Target Visit 20 PT Problem 3 PT Problem #3 Impaired Range of Motion PT Goal 1 Goal / Goal Update 1.The patient will demonstrate 25 degrees right hip abduction AROM. -not met 2.The patient will demonstrate 90 degrees right hip flexion AROM. -met 3.The patient will demonstrate 90 degrees right knee flexion AROM. -met Target Visit 12 Progress Partially Met PT Goal 2 Goal / Goal Update Continue #1 Target Visit 20 PT Problem 4 PT Problem #4 Impaired Strength PT Goal 1 Goal / Goal Update The patient will demonstrate 4/5 or greater hip and knee strength to improve functional ability. Target Visit 12 Progress Not Met PT Goal 2 Goal / Goal Update continue Target Visit 20
--- NOTE | 2024-09-15 11:52 | PTOPPROG ---
Assessment and note entered by Faustina Medina, PT Evaluation Information Assessment Status Progress Diagnosis R AURELIO ICD-10 Condition Codes (PT) Pain in right hip M25.551,Encounter for other orthopedic aftercare Z47.89,Aftercare following joint replacement surgery Z47.1 Onset 07/13/24 Subjective Information Sharda Nicholson reports that her right hip is getting better overall. She still has an ache in the groin area but it is greatly improved. She is able to walk around her house without a cane. She has been able to walk 2 blocks at a time but does experience increased soreness afterwards. She still gets soreness with standing after prolonged sitting and when she first lays down. She is going downstairs backwards and one at a time and going upstairs she faces forwards and still takes them one at a time. She feels she is progressing but it is slow. Assessment PT Clinical Summary Sharda Nicholson has completed 12 skilled PT visits for right hip pain following a right AURELIO. She is reporting overall improvements in her pain and function. She does still have limitations with stairs, walking longer distances, and mild groin pain. 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 She demonstrates improved right hip AROM, improved right hip strength, and improved gait. Despite these improvements, she has not met her PT goals and continues to have limitations in ROM, strength , balance, gait, and endurance. She will continue to benefit from skilled PT to further address physical and functional limitations. Plan of Care Interventions Electrical Stimulation,Hot Pack/Cold Pack,Patient/ Caregiver Education,Therapeutic Activities, Therapeutic Exercise PT Services Indicated Yes Treatment Frequency and Continue skilled PT 2 times a week for 8 more Duration visits These treatments will address the objective and functional deficits as defined above. The patient will be advanced safely and appropriately in order for the patient to progress towards his/her prior level of function. Additional exercises will be introduced and as well as a comprehensive home exercise program upon discharge, if needed, ?to ensure carryover of functional gains achieved in the clinic. This treatment plan has been reviewed and agreement upon by the patient.
--- NOTE | 2024-09-23 13:33 | PCPTNOTE ---
On 09/23/24, the student, [Mini Vizcaino], provided care and completed [facility] documentation on this patient. I have reviewed the student's documentation and agree with the findings.
--- NOTE | 2024-10-13 11:27 | OPREHPOC ---
Outpatient Therapy Plan of Care This is a Multidisciplinary Plan of Care that may contain components documented by all disciplines (PT, OT, and ST.) PT Problem 1 PT Problem #1 Knowledge Deficit PT Goal 1 Goal / Goal Update The patient will demonstrate independence in a home exercise program. Target Visit 4 Progress Met PT Goal 2 Goal / Goal Update Continue to progress. Target Visit 28 PT Problem 2 PT Problem #2 Impaired Functional Mobility PT Goal 1 Goal / Goal Update 1. The patient will demonstrate 40% or less self perceived disability per the LEFS questionnaire. - not met 2. The patient will be able to ambulate 1,000 feet with the least restrictive assistive device and 2 /10 or less right hip pain. -met Target Visit 12 Progress Not Met PT Goal 2 Goal / Goal Update continue #1 Target Visit 28 PT Problem 3 PT Problem #3 Impaired Range of Motion PT Goal 1 Goal / Goal Update 1.The patient will demonstrate 25 degrees right hip abduction AROM. -not met 2.The patient will demonstrate 90 degrees right hip flexion AROM. -met 3.The patient will demonstrate 90 degrees right knee flexion AROM. -met Target Visit 12 Progress Partially Met PT Goal 2 Goal / Goal Update Continue #1 Target Visit 28 PT Problem 4 PT Problem #4 Impaired Strength PT Goal 1 Goal / Goal Update The patient will demonstrate 4/5 or greater hip and knee strength to improve functional ability. Target Visit 12 Progress Not Met PT Goal 2 Goal / Goal Update continue Target Visit 28
--- NOTE | 2024-10-13 11:27 | PTOPPROG ---
Assessment and note entered by Faustina Medina, PT Evaluation Information Assessment Status Progress Diagnosis R AURELIO ICD-10 Condition Codes (PT) Pain in right hip M25.551,Encounter for other orthopedic aftercare Z47.89,Aftercare following joint replacement surgery Z47.1 Onset 07/13/24 Subjective Information Sharda Nicholson reports her right hip is doing better overall. She has had a return of groin pain over the last couple weeks when lunges were added into her PT exercises. She also still has difficulty donning socks/shoes and walking for longer distances. She feels her hip is tight and that may be what contributes to the groin pain and difficulty donning her socks and shoes. Assessment PT Clinical Summary Sharda Nicholson has completed 20 skilled PT visits following a right AURELIO performed on 07/13/24. She is reporting overall improvements but is still limited with walking longer distances, squatting, and donning socks/shoes. She has also had intermittent groin pain as well. She demonstrates improvements in right AROM, right hip strength, endurance, and balance but still has limitations leading to decreased functional abilities. She will continue to benefit from skilled PT to further address these limitations. Plan of Care Interventions Electrical Stimulation,Gait Training,Hot Pack/Cold Pack,Manual Therapy,Neuro Re-education,Patient/ Caregiver Education,Therapeutic Activities, Therapeutic Exercise PT Services Indicated Yes Treatment Frequency and 2 times a week for 8 visits Duration These treatments will address the objective and functional deficits as defined above. The patient will be advanced safely and appropriately in order for the patient to progress towards his/her prior level of function. Additional exercises will be introduced and as well as a comprehensive home exercise program upon discharge, if needed, ?to ensure carryover of functional gains achieved in the clinic. This treatment plan has been reviewed and agreement upon by the patient.
== END 2024-11-04 23:59 | disposition home or self-care (01) ==
LOC: CHSPT 07:48
PROVIDERS: Visit Provider Orthopaedic Surgery
DX: M25.551 Pain in right hip (principal); Z47.89 Encounter for other orthopedic aftercare; Z47.1 Aftercare following joint replacement surgery
CPT/HCPCS: 97014; 97110; 97112; 97150; 97161; 97530; 97750; G0283

== ENCOUNTER 2024-12-10 10:13 | Outpatient (CLI) | payer BC, SELFPAY ==
--- OUTSIDE RECORDS SUMMARY | 2024-12-10 10:30 | XMS_ITS | Encounter Summary ---
Author Organization [facility] Address [address] [place] [address] Phone Care Team Providers Care Marriage Therapist Name Role Phone Po Child MD Primary Care Provider [phone] Reason for Visit * Reason Onset Date Comments Medication Management 07/20/2024 Encounter Details Date Type Department Care Team (Late st Contact Info) Description [facility]20[facility] [address] [place] [address] January Charles, PT Medication Management Social History Tobacco Use Types Packs/Day Years Used Date Smoking Tobacco: Never Assessed Comments Unknown Sex and Gender Information Value Date Recorded Sex Assigned at Not on file Legal Sex Female 9:49 PM CDT Gender Identity Not on file Sexual Orientation Not on file documented as of this encounter Miscellaneous Notes * Telephone Encounter - January Charles, PT - 07/20/2024 4:31 PM CDT S - Medication discrepancies B - Current [facility] patient admitted on 07-20-24 for PT services related to R AURELIO. A - Patient reports that she is taking the following OTC meds : extra strength tylenol 500mg - 1 tab every 6 hours prn for pain, dulcolax 1-3 capsules daily, calm gummies magnesium supplement (330mg magnesium per 4 gummies) - she is taking 4 gummies daily R - Please review the above med discrepancies and update the medication list in EPIC to reflect theany changes. Notify Home Health when complete to facilitate patient education. documented in this encounter Plan of Treatment Not on file documented as of this encounter Visit Diagnoses Not on filedocumented in this encounter Care Teams Marriage Therapist Relationship Specialty Start Date End Date Po Child MD [address] [place] [address] PCP - General Internal Medicine 12/09/19 documented as of this encounter
--- OUTSIDE RECORDS SUMMARY | 2024-12-10 10:30 | XMS_ITS | Clinical Summary ---
Author Organization [facility] Address [address] [place] [address] Phone Care Team Providers Care Furniture Assembler Name Role Phone Po Child MD Primary Care Provider [phone] Allergies Active Allergy Reactions Criticality Noted Date Comments Latex Rash Medium 07/20/2024 Shellfish Allergy Swelling High 07/20/2024 Medications oxyCODONE-Acetamin ophen (PERCOCET) 10-325 MG TabletIndications: Pain take 1-2 tablets every 6-8 hours as directed. Max of 6 tabs/daily. Indications: Pain Active aspirin 325 MG TabletIndications: postop Orthopedic DVT prophylaxis Take 325 mg by mouth daily. Indications: postop Orthopedic DVT prophylaxis Active Probiotic Product (Daily Probiotic) CapsuleIndications :gut health Take 1 Capsule by mouth daily. Indications: gut health Active diclofenac (VOLTAREN) 75 MG Tablet Delayed ResponseIndication s:Osteoarthritis Take 75 mg by mouth 2 times daily. Indications: Joint Damage causing Pain and Loss of Function Active Tirzepatide 5 MG/0.5ML Solution Auto-injectorIndic ations:morbid obesity inject 5 mg subcutaneously one time weekly (Saturday) Indications: morbid obesity Active Vibegron (Gemtesa) 75 MG TabletIndications: Overactive Bladder Take 75 mg by mouth daily. Indications: Overactive Bladder Active RABEprazole (ACIPHEX) 20 MG Tablet Delayed ResponseIndication s:Gastroesophageal Reflux Disease,prevention GI d side effects from NSAIDS Take 20 mg by mouth daily. with meloxicam Indications: Gastroesophageal Reflux Disease, prevention GI d side effects from NSAIDS Active meloxicam (MOBIC) 15 MG TabletIndications: Osteoarthritis Take 15 mg by mouth daily. Indications: Joint Damage causing Pain and Loss of Function Active ondansetron (ZOFRAN-ODT) 8 MG TABLET DISPERSIBLEIndicat ions:Nausea and Vomiting Take 8 mg by mouth. one daily with pain medication Indications: Nausea and Vomiting Active acetaminophen (TYLENOL) 500 MG TabletIndications: Fever,Pain Take 500 mg by mouth every 6 hours as needed for Fever or Mild or more severe pain. Indications: Fever, Pain 025 Active bisacodyl EC (DULCOLAX) 5 MG Tablet Delayed ResponseIndication s:Bowel Evacuation,Constip ation Take 1-3 Tablets by mouth daily as needed for Constipation - 1st line. Indications: Constipation, Evacuation of Material from the Bowel 025 Active Magnesium Citrate (MAGNESIUM GUMMIES PO)Indications:mag nesium supplementation Take 4 Doses by mouth daily. pt doses 4 [id number] daily Indications: magnesium supplementation 025 Active Social History Tobacco Use Types Packs/Day Years Used Date Smoking Tobacco: Never Assessed Comments Unknown Sex and Gender Information Value Date Recorded Sex Assigned at Not on file Legal Sex Female 9:49 PM CDT Gender Identity Not on file Sexual Orientation Not on file Last Filed Vital Signs Vital Sign Reading Time Taken Comments Blood Pressure 126/60 07/31/2024 9:43 AM CDT Pulse 68 07/31/2024 9:43 AM CDT Temperature 36.8 C (98.2 F) 07/31/2024 9:43 AM CDT Respiratory Rate 16 07/31/2024 9:43 AM CDT Oxygen Saturation 97% 07/31/2024 9:43 AM CDT Inhaled Oxygen Concentration - - Weight - - Height - - Body Mass Index - - Plan of Treatment Health Maintenance Due Date Last Done Comments Hepatitis C Virus (HCV) Screening 1974 Mammogram 1974 TdaP Immunization 1974 Hepatitis B Immunization (1 of 3 - 19+ 3-dose series) 1993 Pap Smear 08/08/1995 Cervical Cancer Screening (CCS) 2004 HPV/Cotest 2004 Cologuard 08/08/2019 Colonoscopy 08/08/2019 Colorectal Cancer Screening 08/08/2019 Immunochemical Fecal Occult Blood 08/08/2019 SARS-COV-2 Immunization (1 - 2023-25 season) 2023 Pneumococcal Immunization (5 0+ years) (1 of 1 - PCV) 2024 Zoster Immunization (1 of 2) 2024 Influenza Immunization (#1) 2024 Respiratory Syncytial Virus (RSV) Immunization (Adult) (1 - 1-dose 75+ series) 2049 Human Papillomavirus (HPV) Immunization Aged Out No longer eligible b ased on patient's age to complete this topic Meningococcal Immunization (ACWY) Aged Out No longer eligible based on patient's age to complete this topic Rotavirus Immunization Aged Out No lo nger eligible based on patient's age to complete this topic Insurance [facility] Member Subscriber Plan / Payer (Ef fective 2019-Present) Name:Sharda Nicholson Relation to Subscriber:Self Name:Sharda Nicholson Payer ID:[id number] Group ID:[id number] Type:Not on file Address: [address] [facility] Member Subscriber Plan / Payer (Ef fective 2023-Present) Name:Sharda Nicholson Relation to Subscriber:Self Name:Sharda Nicholson Payer ID:[id number] Group ID:[id number] Type:Not on file Address: [address] Advance Directives * Full Code (Latest Code Status on File) Date Activated Date Inactivated Comments 07/20/2024 10:16 PM Care Teams Furniture Assembler Relationship Specialty Start Date End Date Po Child MD [address] [place] [address] PCP - General Internal Medicine 12/09/19
--- OUTSIDE RECORDS SUMMARY | 2024-12-10 10:30 | XMS_ITS | Encounter Summary ---
Author Organization [facility] Address [address] [place] [address] Phone Care Team Providers Care Certified Credit Counselor Name Role Phone Po Child MD Primary Care Provider [phone] Reason for Visit * Reason Onset Date Comments Medication Management 07/28/2024 Encounter Details Date Type Department Care Team (Late st Contact Info) Description 07/28/[address] [facility] [address] [place] [address] Adina Golden, RN [place] Medication Management Social History Tobacco Use Types Packs/Day Years Used Date Smoking Tobacco: Never Assessed Comments Unknown Sex and Gender Information Value Date Recorded Sex Assigned at Not on file Legal Sex Female 9:49 PM CDT Gender Identity Not on file Sexual Orientation Not on file documented as of this encounter Miscellaneous Notes * Telephone Encounter - Adina Golden RN - 07/28/2024 11:50 AM CDT 1130: Triage made followup call to GERTRUDIS Briceño w/PCP to report the findings from pt's 07/20/24 SOC med rec per Farooq Sin Phy th: Patient reports that she is taking the following OTC meds: 1) Extra strength Tylenol 500mg - 1 tab every 6 hours prn for pain, 2) Dulcolax 1-3 capsules daily, 3)Calm gummies Magnesium supplement (330mg magnesium per 4 gummies) - she is taking 4 gummies daily. Triage asking if these OTC meds in use are approved and can be added to MAR. GERTRUDIS Briceño will confer with PCP and call HH Triage back as indicated. 1155: Triage also called to Dr. Marcello Long[facility] office voicemail about above OTC med questions as well as to verify current NSAID rx regime. Request to call back to HH Triage. 1310: Call back from GERTRUDIS Briceño w/PCP. Provider Ok with pt using above listed OTC meds/supplements. Triage added them to pt's JUN. Indications for rx added to all meds in JUN per pt chart dx. Phy th: med rec followup now completed. documented in this encounter Plan of Treatment Not on file documented as of this encounter Visit Diagnoses Not on filedocumented in this encounter Care Teams Certified Credit Counselor Relationship Specialty Start Date End Date Po Child MD [address] [place] [address] PCP - General Internal Medicine 12/09/19 documented as of this encounter
--- OUTSIDE RECORDS SUMMARY | 2024-12-10 10:31 | XMS_ITS ---
Author Organization [facility] Address [address] [place] [address] Care Team Providers Care Confidential Secretary Name Role Phone Po Child Primary Care Provider Elieser Ortega Jr, MD, [facility] ALLERGIES Allergen (clinical drug ingredient) Drug/Non Drug Allergy documented on EMR Reaction Allergy Type Onset Date Status Latex Gloves Unknown Drug Allergy Acti ve Shellfish (FN) Shellfish (uncoded) Swelling mouth/throat Allergy Active Latex Latex (uncoded) Rash Allergy Acti ve REASON FOR VISIT Right hip pain MEDICATIONS Medication SIG (Take, Route, Frequency, Duration) Notes Start Date End Date Status Gemtesa 75 MG 1time a day Prescribed By: Andres Rondon Active Diclofenac 2 times a day; Prescribed By: Po Child Active SOCIAL HISTORY Tobacco Use: Social History Observation Description Date Details (start date - stop date) Former Smoker 04/29/2008 - 04/29/2018 Sex Assigned At : Social History Observation Description Sex Assigned At Unknown Tobacco Use: Question Answer Notes Patient is a: former smoker When did you start smoking? 04/29/2008 When did you stop smoking? 04/29/2018 How long has it been since you last smoked? 5-10 years Alcohol screening: Question Answer Notes Did you have a drink contain ing alcohol in the past year? Yes How often did you have a dri nk containing alcohol in the past year? Monthly or less (1 point) How many drinks did you have on a typical day when you were drinking in the past year? 1 or 2 (0 points) How often did you have six o r more drinks on one occasion in the past year? Never (0 points) Points 1 Interpretation Negative PROBLEMS Problem Type ICD Code Onset Dates Problem Status W/U Status Risk SNOMED Code Notes Problem Osteoarthritis of right hip joint due to dysplasia (M16.31) 06/13/19 Active confirmed [id number] Problem Morbid (severe) obesity due to excess calories (E66.01) 06/13/19 Active confirmed [id number] Problem Body mass index [BMI] 45.0-49.9, adult (Z68.42) 06/13/19 Active confirmed [id number] VITAL SIGNS Blood pressure systolic 126 mm Hg 06/13/19 Blood pressure diastolic 78 mm Hg 024 Heart Rate 67 /min 06/13/2023 Height 67 in 06/13/2023 Weight 290 lbs 06/13/2023 BMI 45.42 kg/m2 06/13/2023 Encounters Encounter Location Date Provider Diagnosis [facility] [address] [place] [id number] 06/13/2023 Rip Ortega Jr, MD Osteoarthritis of right hip joint due to dysplasia M16.31 ; Morbid (severe) obesity due to excess calories E66.01 and Body mass index [BMI] 45.0-49.9, adult Z68.42 ASSESSMENTS Encounter Date Diagnosis Assessment Notes Treatment Notes Treatment Clinical Notes 06/13/2023 Osteoarthritis of right hip joint due to dysplasia (ICD-10 - M16.31) 06/13/2023 Morbid (severe) obesity due to excess calories (ICD-10 - E66.01) 06/13/2023 Body mass index [BMI ] 45.0-49.9, adult (ICD-10 - Z68.42) PLAN OF TREATMENT No Information History and Physical Notes * HPI (History of Present Illness) Category Sub-Category Detail Notes Depression Screening PHQ-2 (2015 Edition) Little interest or pleasure in doing things?: Several days Feeling down, depressed, or hopeless?: S everal days Total Score: 2
--- OUTSIDE RECORDS SUMMARY | 2024-12-10 10:31 | XMS_ITS | Patient Health Record ---
Author Organization [facility] Address [address] [place] [address] Care Team Providers Care Radiologic Technology Instructor Name Role Phone Po Child Primary Care Provider Elieser Ortega Jr, MD, [facility] ALLERGIES Allergen (clinical drug ingredient) Drug/Non Drug Allergy documented on EMR Reaction Allergy Type Onset Date Status Latex Gloves Unknown Drug Allergy Acti ve Shellfish (FN) Shellfish (uncoded) Swelling mouth/throat Allergy Active Latex Latex (uncoded) Rash Allergy Acti ve REASON FOR REFERRAL No Information MEDICATIONS Medication SIG (Take, Route, Frequency, Duration) [...] W/U Status Risk SNOMED Code Notes Problem Morbid (severe) obesity due to excess calories (E66.01) 06/13/19 Active confirmed [id number] Problem Osteoarthritis of right hip joint due to dysplasia (M16.31) 06/13/19 Active confirmed [id number] Problem Body mass index [BMI] 45.0-49.9, adult (Z68.42) 06/13/19 Active confirmed [id number] PLAN OF TREATMENT No Information Insurance Providers Payer Name Payer Address Payer Phone Subscriber Number Group Number Insured Name Patient Relationship to Insured Coverage Start Date Coverage End Date [employer] [address] [place] [address] [id number] Sharda Nicholson Self - patient is the insured Blue [employer] Blue Shield [address] [place] [address] [phone] [id number] Dalton Nicholson Spouse - patient is the spouse of the insured MEDICAL (GENERAL) HISTORY Medical History History ICD Code Past history and review of s ystems are noted in the initial medical evaluation form completed by the patient and scanned into the chart. kidney stones Arthritis Depression Obesity Surgical History Surgery Date(Month/Year) Arthroscopy of knee with meniscus repair 2022 Ankle surgery 2012 Novasure ablation 2016 right peroneal tendon recons truction, a right ankle lateral ligamentous reconstruction, and open excision of medial malleolar bone ossicles 01/13/13
[2024-12-10 10:53] LABS: Hematocrit 48.5 % (35.0-49.0); Hemoglobin 15.5 g/dL (12.0-15.0); Immature Granulocyte Percent A 0.5 % (0.0-0.0); Lymphocytes Absolute Auto 1.41 K/mm3 (1.10-4.50); Mean Corpuscular HGB Conc 32.0 g/dL (32-36); Mean Corpuscular Hemoglobin 27.7 pg (27.0-31.0); Mean Corpuscular Volume 86.8 fL (78.0-102.0); Nucleated Red Blood Cells Absolute Auto 0.00 K/mm3 (0.00-0.00); Nucleated Red Blood Cells Perc 0.0 % (0-0.0); Platelet Count Result 262 K/mm3 (150-420); Red Blood Count 5.59 M/mm3 (4.20-5.40); White Blood Count 7.4 K/mm3 (4.8-10.8)
== END 2024-12-10 10:14 | disposition home or self-care (01) ==
PROVIDERS: PCP Internal Medicine; Visit Provider Family Medicine
DX: N95.1 Menopausal and female climacteric states (principal); R53.83 Other fatigue; E34.9 Endocrine disorder, unspecified; R68.82 Decreased libido
CPT/HCPCS: 36415; 85025

== ENCOUNTER 2025-01-27 09:15 | Outpatient (RCR) | payer OTHER, SELFPAY ==
--- NOTE | 2024-11-24 10:24 | OPREHPOC ---
Outpatient Therapy Plan of Care This is a Multidisciplinary Plan of Care that may contain components documented by all disciplines (PT, OT, and ST.) PT Problem 1 PT Problem #1 Knowledge Deficit PT Goal 1 Goal / Goal Update The patient will demonstrate independence in a home exercise program. Target Visit 4 Progress Met PT Goal 2 Goal / Goal Update Continue to progress. Target Visit 28 Progress Met PT Problem 2 PT Problem #2 Impaired Functional Mobility PT Goal 1 Goal / Goal Update 1. The patient will demonstrate 40% or less self perceived disability per the LEFS questionnaire. - not met 2. The patient will be able to ambulate 1,000 feet with the least restrictive assistive device and 2 /10 or less right hip pain. - partially met Target Visit 12 Progress Partially Met PT Goal 2 Goal / Goal Update continue #1 and #2 Target Visit 40 PT Problem 3 PT Problem #3 Impaired Range of Motion PT Goal 1 Goal / Goal Update 1.The patient will demonstrate 25 degrees right hip abduction AROM. -met 2.The patient will demonstrate 90 degrees right hip flexion AROM. -met 3.The patient will demonstrate 90 degrees right knee flexion AROM. -met Target Visit 12 Progress Met PT Goal 2 Goal / Goal Update Continue #1 Target Visit 28 Progress Met PT Problem 4 PT Problem #4 Impaired Strength PT Goal 1 Goal / Goal Update The patient will demonstrate 4/5 or greater hip and knee strength to improve functional ability. Target Visit 12 Progress Not Met PT Goal 2 Goal / Goal Update continue Target Visit 40 PT Problem 5 PT Problem #5 Impaired Functional Mobility PT Goal 1 Goal / Goal Update 1. patient to carry 4lbs up steps independent and safe to return to work duties 2. patient to carry 40lbs x400ft safely to return to work duties 3. 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
--- NOTE | 2024-11-24 10:25 | PTOPREEVAL ---
Assessment and note entered by JT File, PT Evaluation Information Assessment Status Re-evaluation Diagnosis R AURELIO ICD-10 Condition Codes (PT) Pain in right hip M25.551,Encounter for other orthopedic aftercare Z47.89,Aftercare following joint replacement surgery Z47.1 Onset 07/13/24 Subjective Information patient she continues to have pain in the R groin all the time. she reports the doctor says this may actually be a hernia and not the hip due to how low she is reporting pain in the groin. she reports she still does not feel she could return to prior level work duties due to strength and pain levels. she arrives to skilled PT with a new order to continue skilled PT. Reported Pain Level Pain Score 4: Self Report Assessment PT Clinical Summary ms. chung presents to skilled PT services for her th skilled PT visit post R AURELIO. she continues to display R hip weakness, R hip pain, and functional deficits impacting her ability to return to full prior level work duties. she has new orders to continue skilled PT from her MD, and given her reduced strength, pain, and fatigue with carrying and lifting 32.5lbs she would benefit from continued skilled PT to progress towards a return to prior level work duties. she is progressing in weight lifting and carried each week, and is able to carry 20lbs up and down steps without assist. Plan of Care Interventions Electrical Stimulation,Gait Training,Hot Pack/Cold Pack,Manual Therapy,Neuro Re-education,Patient/ Caregiver Education,Therapeutic Activities, Therapeutic Exercise PT Services Indicated Yes Treatment Frequency and continue skilled PT 2x weekly for 12 more visits ( Duration 40 total) These treatments will address the objective and functional deficits as defined above. The patient will be advanced safely and appropriately in order for the patient to progress towards his/her prior level of function. Additional exercises will be introduced and as well as a comprehensive home exercise program upon discharge, if needed, ?to ensure carryover of functional gains achieved in the clinic. This treatment plan has been reviewed and agreement upon by the patient.
--- NOTE | 2025-01-12 12:06 | OPREHPOC ---
Outpatient Therapy Plan of Care This is a Multidisciplinary Plan of Care that may contain components documented by all disciplines (PT, OT, and ST.) PT Problem 1 PT Problem #1 Knowledge Deficit PT Goal 1 Goal / Goal Update The patient will demonstrate independence in a home exercise program. Target Visit 4 Progress Met PT Goal 2 Goal / Goal Update Continue to progress. Target Visit 48 Progress Met PT Problem 2 PT Problem #2 Impaired Functional Mobility PT Goal 1 Goal / Goal Update 1. The patient will demonstrate 40% or less self perceived disability per the LEFS questionnaire. - not met 2. The patient will be able to ambulate 1,000 feet with the least restrictive assistive device and 2 /10 or less right hip pain. - regressed Target Visit 12 Progress Partially Met PT Goal 2 Goal / Goal Update continue #1 and #2 Target Visit 48 PT Problem 3 PT Problem #3 Impaired Range of Motion PT Goal 1 Goal / Goal Update 1.The patient will demonstrate 25 degrees right hip abduction AROM. -met 2.The patient will demonstrate 90 degrees right hip flexion AROM. -met 3.The patient will demonstrate 90 degrees right knee flexion AROM. -met Target Visit 12 Progress Met PT Goal 2 Goal / Goal Update New Goal: Pt to demonstrate 0-110 degrees left knee AROM to normalize gait. Target Visit 28 Progress Met PT Problem 4 PT Problem #4 Impaired Strength PT Goal 1 Goal / Goal Update The patient will demonstrate 4/5 or greater hip and knee strength to improve functional ability. Target Visit 12 Progress Not Met PT Goal 2 Goal / Goal Update continue Target Visit 48 PT Problem 5 PT Problem #5 Impaired Functional Mobility PT Goal 1 Goal / Goal Update 1. patient to carry 4lbs up steps independent and safe to return to work duties -not met 2. patient to carry 40lbs x400ft safely to return to work duties -not met 3. 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
--- NOTE | 2025-01-12 12:06 | PTOPEVAL1 ---
Assessment and note entered by Faustina Medina, PT Evaluation Information Assessment Status Progress Diagnosis R AURELIO ICD-10 Condition Codes (PT) Pain in right hip M25.551,Encounter for other orthopedic aftercare Z47.89,Aftercare following joint replacement surgery Z47.1 Onset 07/13/24 Subjective Information Sharda reports she saw her surgeon on 01/01/25 and he said she is not ready for work conditioning regarding her right hip. They discussed her left knee giving out more frequently and being more painful. He did not want to do a cortisone injection and wanted her to continue PT. She plans to call Dr. Caruso today because her knee has been even worse over the last week. She reports she nearly fell this am due to her knee giving out . She also notes her right hip has started hurting again on the outer side that she feels is due to working more to compensate for the left knee. She reports she still does not feel she could return to prior level work duties due to strength and pain levels. She arrives to skilled PT with a new order to continue skilled PT. Reported Pain Level Pain Score 4,9: Self Report Assessment PT Clinical Summary Sharda Nicholson presents to skilled PT services for her 40th skilled PT visit post R AURELIO. She presents with new c/o left knee pain that has significantly worsened over the last 2 weeks for unknown reasons. She is reporting frequent giving out of the left knee and has noted an increase in right hip pain that she feels is due to compensating for the left knee. She continues to display R hip weakness, R hip pain, and functional deficits impacting her ability to return to full prior level work duties. She also demonstrates a regression in left knee strength, left knee AROM, and functional mobility including walking tolerance and stair negotiation due to left knee pain. She has new orders to continue skilled PT from her MD, and given her reduced strength, pain, and fatigue she will continue to benefit from skilled PT for her right hip as well as left knee. Plan of Care Interventions Electrical Stimulation,Gait Training,Hot Pack/Cold Pack,Manual Therapy,Neuro Re-education,Patient/ Caregiver Education,Therapeutic Activities, Therapeutic Exercise PT Services Indicated Yes Treatment Frequency and continue skilled PT 2x weekly for 8 more visits ( Duration 40 total) These treatments will address the objective and functional deficits as defined above. The patient will be advanced safely and appropriately in order for the patient to progress towards his/her prior level of function. Additional exercises will be introduced and as well as a comprehensive home exercise program upon discharge, if needed, ?to ensure carryover of functional gains achieved in the clinic. This treatment plan has been reviewed and agreement upon by the patient.
== END 2025-02-04 22:00 | disposition still patient (30) ==
LOC: CHSPT 09:15
PROVIDERS: Visit Provider Orthopaedic Surgery
DX: Z47.1 Aftercare following joint replacement surgery (principal); M25.551 Pain in right hip; Z96.641 Presence of right artificial hip joint
CPT/HCPCS: 97014; 97110; 97112; 97150; 97530; G0283

== ENCOUNTER 2025-02-17 08:22 | Outpatient (CLI) | payer BC, SELFPAY ==
--- NOTE | ~2025-02-17 | MM_ITS ---
EXAMINATION: MM screening kristina BI w moris HISTORY: Screening TECHNIQUE: Craniocaudal and mediolateral oblique 3-D tomosynthesis images were obtained and synthetic 2-D images were generated. CAD analysis was submitted and interpreted. COMPARISON: Comparison to multiple prior studies sequentially, with oldest reviewed study dated , 02/12/2022 BREAST PARENCHYMAL COMPOSITION: The breasts are almost entirely fatty. FINDINGS: There is no evidence of suspicious mass, calcification, or architectural distortion to suggest malignancy in either breast. IMPRESSION: 1. No mammographic evidence of malignancy. 2. Recommend routine screening mammography in one year. BI-RADS Category 1: Negative Reviewed, dictated and finalized at location B.
--- OUTSIDE RECORDS SUMMARY | 2025-02-17 08:42 | XMS_ITS | Patient Health Record ---
Author Organization [facility] Address [address] [place] [address] Care Team Providers Care Managed Services Consultant Name Role Phone Po Child Primary Care Provider Elieser Ortega Jr, MD, [facility] [phone] ALLERGIES Allergen (clinical drug ingredient) Drug/Non Drug [...] to excess calories (E66.01) 06/13/19 Active confirmed [id number] Problem Osteoarthritis of right hip joint due to dysplasia (M16.31) 06/13/19 Active confirmed [id number] Problem Body mass index [BMI] 45.0-49.9, adult (Z68.42) 06/13/19 Active confirmed [id number] PLAN OF TREATMENT No Information Insurance Providers Payer Name Payer Address Payer Phone Subscriber Number Group Number Insured Name Patient Relationship to Insured Coverage Start Date Coverage End Date [employer] Blue Shield [address] [place] [address] [id number] Sharda Nicholson Self - patient is the insured Blue Cross Blue Shield [address] [place] [address] [id number] Dalton Nicholson Spouse - patient is the [...]
--- OUTSIDE RECORDS SUMMARY | 2025-02-17 08:42 | XMS_ITS | Clinical Summary ---
Author Organization [facility] Address [address] [place] [address] Phone Care Team Providers Care Car Customizer Name Role Phone Po Child MD Primary Care Provider [phone] Allergies Active Allergy Reactions Criticality Noted Date [...] Doses by mouth daily. pt doses 4 [id number] daily Indications: magnesium supplementation 025 Active Social [...] Screening 08/08/2019 Immunochemical Fecal Occult Blood 08/08/2019 Pneumococcal Immunization (5 0+ years) (1 of 1 - PCV) 2024 Zoster Immunization (1 of 2) 2024 Influenza Immunization (#1) 2024 SARS-COV-2 Immunization (1 - season) 2024 Respiratory Syncytial Virus (RSV) Immunization (Adult) [...] patient's age to complete this topic Insurance [facility] Member Subscriber Plan / Payer (Ef fective 2019-Present) Name:Sharda Nicholson Relation to Subscriber:Self Name:Sharda Nicholson Payer ID:PAPER Group ID:NONE Type:Not on file Address: [address] [facility] Member Subscriber Plan / Payer (Ef fective 2023-Present) Name:Sharda Nicholson Relation to Subscriber:Self Name:Sharda Nicholson Payer ID:PAPER Group ID:NONE Type:Not on file Address: [address] Advance Directives * Full Code (Latest Code Status on File) Date Activated Date Inactivated Comments 07/20/2024 10:16 PM Care Teams Car Customizer Relationship Specialty Start Date End Date Po Child MD [address] [place] [address] PCP - General Internal Medicine 12/09/19
--- OUTSIDE RECORDS SUMMARY | 2025-02-17 08:42 | XMS_ITS | Encounter Summary ---
Author Organization [facility] Address [address] [place] [address] Phone Care Team Providers Care Senior Brand Manager Name Role Phone Po Child MD Primary Care Provider [phone] Reason for Visit * Reason Onset Date Comments Medication Management 07/20/2024 Encounter Details Date Type Department Care Team (Late st Contact Info) Description 07/20/2024 [facility] [address] [place] [address] January Charles, PT Medication Management Social History [...] on filedocumented in this encounter Care Teams Senior Brand Manager Relationship Specialty Start Date End Date Po Child MD [address] [place] [address] PCP - General Internal Medicine 12/09/19 documented as of this encounter
== END 2025-02-17 08:23 | disposition home or self-care (01) ==
LOC: CHSIMG 08:22
PROVIDERS: PCP Internal Medicine; Visit Provider Obstetrics & Gynecology
DX: Z12.31 Encounter for screening mammogram for malignant neoplasm of breast (principal)
CPT/HCPCS: 77063; 77067

== ENCOUNTER 2025-04-14 16:05 | Outpatient (CLI) | payer SELFPAY ==
[2025-04-14 16:19] LABS: Hematocrit 47.7 % (35.0-49.0); Hemoglobin 15.7 g/dL (12.0-15.0); Mean Corpuscular HGB Conc 32.9 g/dL (32-36); Mean Corpuscular Hemoglobin 28.7 pg (27.0-31.0); Mean Corpuscular Volume 87.2 fL (78.0-102.0); Platelet Count Result 278 K/mm3 (150-420); Red Blood Count 5.47 M/mm3 (4.20-5.40); White Blood Count 8.3 K/mm3 (4.8-10.8)
--- OUTSIDE RECORDS SUMMARY | 2025-04-14 18:12 | XMS_ITS | Encounter Summary ---
Author Organization [facility] Address [address] [place] [address] Phone Care Team Providers Care Clinical Audiologist Name Role Phone Po Child MD Primary Care Provider [phone] Reason for Visit * Reason Onset Date Comments Medication Management 07/20/2024 Encounter Details Date Type Department Care Team (Late st Contact Info) Description 07/20/2024 Telephone [facility] [address] [place] [address] January Charles, PT Medication Management Social History Tobacco Use Types Packs/Day Years Used Date Smoking Tobacco: Never Assessed Comments Unknown Sex and Gender Information Value Date Recorded Sex Assigned at Not on file Legal Sex Female 9:49 PM CDT Gender Identity Not on file Sexual Orientation Not on file documented as of this encounter Functional Status * BP Answer Date of Assessment Author 128/72 07/22/2024 2:50 PM CDT Bolivar Sheppard et K, SWITCHING OPERATOR * Temp Answer Date of Assessment Author 96.8 07/22/2024 2:50 PM CDT Bolivar Sheppard et K, SWITCHING OPERATOR * Pulse Answer Date of Assessment Author 78 07/22/2024 2:50 PM CDT Brim, Shawn net K, SWITCHING OPERATOR * Resp Answer Date of Assessment Author 16 07/22/2024 2:50 PM CDT Bolivar Sheppard et K, SWITCHING OPERATOR * SpO2 Answer Date of Assessment Author 98 07/22/2024 2:50 PM CDT Bolivar Sheppard et K, SWITCHING OPERATOR documented as of this encounter Mental Status * BP Answer Entry Date Author 128/72 07/22/2024 2:50 PM CDT Bolivar Sheppard et K, SWITCHING OPERATOR * Temp Answer Entry Date Author 96.8 07/22/2024 2:50 PM CDT Sonya Sheppard, SWITCHING OPERATOR * Pulse Answer Entry Date Author 78 07/22/2024 2:50 PM CDT Sonya Sheppard, SWITCHING OPERATOR * SpO2 Answer Entry Date Author 98 07/22/2024 2:50 PM CDT Sonya Sheppard, SWITCHING OPERATOR documented in this encounter Miscellaneous Notes * Telephone Encounter - January Charles, PT - 07/20/2024 4:31 PM CDT S - Medication discrepancies B - Current [facility] patient admitted on 07-20-24 for [...] on filedocumented in this encounter Care Teams Clinical Audiologist Relationship Specialty Start Date End Date Po Child MD [address] [place] [address] PCP - General Internal Medicine 12/09/19 documented as of this encounter
--- OUTSIDE RECORDS SUMMARY | 2025-04-14 18:12 | XMS_ITS | Clinical Summary ---
Author Organization [facility] Address [address] [place] [address] Phone Care Team Providers Care Tire Shop Mechanic Name Role Phone Po Child MD Primary Care Provider [phone] Allergies Active Allergy Reactions Criticality Noted Date [...] Doses by mouth daily. pt doses 4 [id number] daily Indications: magnesium supplementation 025 Active Social [...] Immunization (#1) 2024 SARS-COV-2 Immunization (1 - 2024- season) 2024 Respiratory Syncytial Virus (RSV) Immunization (Adult) (1 - 1-dose 75+ series) 2049 Human Papillomavirus (HPV) Immunization (No Doses Required) Completed Meningococcal Immunization (ACWY) Aged Out No longer eligible based on patient's age to complete this topic Rotavirus Immunization Aged Out No lo nger eligible based on patient's age to complete this topic Insurance [facility] Member Subscriber Plan / Payer (Ef fective 2023-Present) Name:Sharda Nicholson Relation to Subscriber:Self Name:Sharda Nicholson Payer ID:PAPER Group ID:NONE Type:Not on file Address: [address] Advance Directives * Full Code (Latest Code Status on File) Date Activated Date Inactivated Comments 07/20/2024 10:16 PM Care Teams Tire Shop Mechanic Relationship Specialty Start Date End Date Po Child MD [address] [place] [address] PCP - General Internal Medicine 12/09/19
== END 2025-04-14 16:06 | disposition home or self-care (01) ==
LOC: CHSLAB 16:09
PROVIDERS: PCP Internal Medicine; Visit Provider Family Medicine
DX: N95.1 Menopausal and female climacteric states (principal); R53.83 Other fatigue; E34.9 Endocrine disorder, unspecified; R68.82 Decreased libido
CPT/HCPCS: 36415; 85027